=== PATIENT | female | born 1965 | race African-American/Black ===

== ENCOUNTER 2020-02-11 00:58 | Emergency (ER) | payer OTHER, SELFPAY ==
--- NOTE | ~2020-02-11 | XR_ITS ---
XR chest 1V portable 02/11/2020 01:50 Indication: Shortness of breath. Procedure: AP portable chest Comparison: No prior studies for comparison. Findings: Patchy bilateral airspace disease. No pleural effusion or pneumothorax. Heart size normal. No acute osseous abnormality. Impression: 1: Patchy bilateral airspace disease, consistent with pneumonia. Reviewed, dictated and finalized at location A. OYEE TRAINING SPECIALIST Impression: 1: Patchy bilateral airspace disease, consistent with pneumonia.
--- NOTE | ~2020-02-11 | CT_ITS ---
EXAMINATION: CTA chest PE protocol EXAM DATE: 02/11/2020 03:15 INDICATION: Dyspnea. TECHNIQUE: Spiral CTA of the chest (pulmonary arteries) was performed with 100 cc Omnipaque 350 intr avenous contrast injection. Images were acquired during the pulmonary arterial phase. Coronal maxi mum intensity projection 3D-reconstructions were created by the technologist on dedicated workstation . Axial, coronal and sagittal reformatted images were reviewed. The dose-length product (DLP) for t his examination was 961.63 mGy-cm. The exposure was tailored according to patient size (auto mA exp osure control), and iterative reconstruction (ASIR) was used as additional dose reduction technique. There is no prior study for comparison. FINDINGS: Pulmonary arteries are well opacified and without intraluminal filling defects. No thora cic aortic dissection. Bilateral patchy peripheral predominant groundglass opacities Appearance is typical of early stage C OVID 19. Less likely acute possibilities include influenza, pulmonary edema or hemorrhage. Some speech language specialist drew processes that can have this appearance include cryptogenic organizing pneumonia, desquamative in terstitial pneumonia, nonspecific interstitial pneumonia, drug toxicity, connective tissue disease. P lease clinically correlate and test as appropriate. There are no pleural or pericardial effusions. Tracheobronchial tree is patent. There is no media stinal, hilar or axillary lymphadenopathy. There is no pneumothorax. Heart normal in size. No e vidence of coronary arterial calcification. There is small to moderate sliding gastroesophageal hiata l hernia. There is thoracic spondylosis without osteoblastic or osteolytic lesions identified. IMPRESSION: 1. No evidence pulmonary embolism. 2. Patchy bilateral airspace disease suspicious for COVID-19 pneumonia. Clinical correlation. Reviewed, dictated and finalized at location B. FITTER IMPRESSION: 1. No evidence pulmonary embolism. 2. Patchy bilateral airspace disease suspicious for COVID-19 pneumonia. Clini balbina correlation.
--- NOTE | 2020-02-11 01:18 | ECG_ITS ---
Measurements Intervals [place] Rate: 82 P: 54 MD: 148 QRS: -15 QRSD: 91 T: -7 QT: 325 QTc: 381 Interpretive Statements SINUS RHYTHM VOLTAGE CRITERIA FOR LVH POOR R WAVE PROGRESSION, ANTERIOR LEADS BORDERLINE T WAVE ABNORMALITY- ANTEROLAT/INF LEADS BASELINE ARTIFACT- I, II, III, AVR, AVL, AVF, V1-V6 BORDERLINE ECG Electronically Signed On 02-11-2020 7:25:41 FUEL QUALITY TECH by Dhiraj Alvarez D.O.
[2020-02-11 01:19] VITALS: BP 115/85; PULSE 113; RESP 23; TEMP 36.7; O2SAT 97
--- NOTE | 2020-02-11 01:50 | ED.GENADULT ---
HPI - General Adult General Chief complaint: Upper Respiratory Infection Stated complaint: shortness of breath/cough Time Seen by Provider: 02/11/20 01:01 Source: RN notes reviewed History of Present Illness HPI narrative: Patient presents emergency department from home for upper respiratory infection. Patient states she began to feel sick 3 days ago. She states that she has had rhinorrhea as well as a cough that is been nonproductive she states that she does have some chest pain with coughing that resolves with rest states that she gone to the urgent care 2 days ago and has a Covid test that is pending from the urgent care she states that she was discharged with prednisone and Tessalon Perles with minimal relief states she had increased feeling shortness of breath brought her to the emergency department this evening she denies any fevers or chills or any other symptoms at this time Related Data Allergies Allergy/AdvReac Type Severity Reaction Status Date / Time TYLENOL WITH CODEINE AdvReac Intermediate VOMITING, Uncoded 02/11/20 01:00 DIZZINESS Review of Systems Review of Systems: Narrative: Gen.: Denies fevers or chills Eyes: Denies eye pain or visual change ENT: Reports nasal congestion Respiratory: See HPI CV: Denies chest pain or palpitations GI: Denies abdominal pain nausea, emesis or diarrhea Musculoskeletal: Denies back pain or muscle pain Neuro: Denies numbness, tingling, weakness or focal weakness Skin: Denies rash Except as documented, all other systems reviewed and negative [facility] Past Medical History Medical History (Updated 02/11/20 @ 04:01 by Dieudonne Carrillo DO) Patient denies significant medical history Social History Social History (Updated 02/11/20 @ 02:05 by Dieudonne Carrillo DO) Smoking status: Never smoker Exam Narrative: Exam Narrative: APPEARANCE: No acute distress, nontoxic, resting in bed EYES: EOMI HEENT: Normocephalic, atraumatic, OMM RESPIRATORY: No respiratory distress Clear to auscultation bilaterally with no rhonchi wheezing or rales. CARDIOVASCULAR: Regular rate and rhythm without murmurs rubs or gallops. ABDOMINAL: Soft, nontender, nondistended, no rebound or guarding MUSCULOSKELETAl: Moves all extremities. No clubbing, cyanosis or edema. NEURO: Awake and alert. Following commands, speech normal, no focal deficits SKIN:: Warm, dry. No rashes lesions or abrasions PSYCHIATRIC: Normal affect/mood, Course Course Emergency Course: Patient is remained on room air throughout stay in ED with oxygen saturations in the upper 90s CT scan does appear consistent with COVID-19 at this time I will plan to discharge the patient with follow-up as an outpatient I will repeat Covid swab Discussed with patient results of workup and diagnosis. Discussed need for follow-up with primary care, proper use of medication, and reasons to return to the emergency department. Patient understands and agrees to current treatment plan Vital Signs Vital signs: Vital Signs Temperature 98.1 F 02/11/20 01:19 Pulse Rate 113 H 02/11/20 01:19 Respiratory Rate 23 H 02/11/20 01:19 Blood Pressure 115/85 02/11/20 01:19 Pulse Oximetry 97 02/11/20 01:19 Temperature 98.1 F 02/11/20 01:19 Pulse Rate 84 02/11/20 03:57 Respiratory Rate 25 H 02/11/20 03:57 Blood Pressure 124/80 02/11/20 03:57 Pulse Oximetry 99 02/11/20 03:57 Medical Decision Making Vital Signs Vital Signs: Vital Signs Temperature 98.1 F 02/11/20 01:19 Pulse Rate 113 H 02/11/20 01:19 Respiratory Rate 23 H 02/11/20 01:19 Blood Pressure 115/85 02/11/20 01:19 Pulse Oximetry 97 02/11/20 01:19 Temperature 98.1 F 02/11/20 01:19 Pulse Rate 84 02/11/20 03:57 Respiratory Rate 25 H 02/11/20 03:57 Blood Pressure 124/80 02/11/20 03:57 Pulse Oximetry 99 02/11/20 03:57 Lab Data Result diagrams: 02/11/20 01:54 02/11/20 01:54 Labs: Lab Results 02/11/2001/20
[2020-02-11 02:11] VITALS: BP 134/82; PULSE 89; RESP 30; O2SAT 99
--- NOTE | 2020-02-11 02:11 | PC.NURSE ---
Called lab to add on Trop I
[2020-02-11 02:13] LABS: Hematocrit 35.6 % (37.0-47.0); Hemoglobin 11.6 g/dL (12.0-15.0); Immature Granulocyte Absolute 0.02 K/mm3 (0.00-0.031); Immature Granulocyte Percent A 0.3 % (0-0.5); Lymphocytes Absolute Auto 0.87 K/mm3 (0.9-3.2); Lymphocytes Percent Auto 11.3 % (18.3-44.2); Mean Corpuscular HGB Conc 32.6 g/dl (32-36); Mean Corpuscular Volume 79.8 fl (80-100); Mean Platelet Volume 12.1 fl (7.4-10.4); Monocytes Absolute Auto 0.4 K/mm3 (0.1-0.6); Monocytes Percent Auto 4.6 % (2.6-8.5); Neutrophils Absolute Auto 6.4 K/mm3 (1.3-6.7); Neutrophils Percent Auto 83.8 % (45.5-73.1); Platelet Count Result 138 k/mm3 (150-375); Red Blood Count 4.46 M/mm3 (4.2-5.4); Red Cell Distribution Width 15.7 % (11.5-14.5); White Blood Count 7.7 K/mm3 (4.5-10.0)
[2020-02-11 02:18] LABS: Anion Gap 8 mmol/L (8-16); Blood Urea Nitrogen 17 mg/dL (7-17); Carbon Dioxide 29 mmol/L (22-30); Chloride 105 mmol/L (98-107); Estimated Glomerular Filt Rate > 60; Glucose 130 mg/dL (65-105); Potassium 4.2 mmol/L (3.4-5.0); Sodium 142 mmol/L (137-145)
[2020-02-11 02:20] LABS: D Dimer 0.54 ug/mL (<0.48)
[2020-02-11 02:35] LABS: Troponin I < 0.012 ng/mL (0.000-0.034)
[2020-02-11] MEDS: ALBUTEROL SULFATE (*SP) AEROSOL 1 PUFF 2 PUFF INHALATION (02:57)
[2020-02-11 03:16] VITALS: PULSE 92
[2020-02-11 03:57] VITALS: BP 124/80; PULSE 84; RESP 25; O2SAT 99
[2020-02-11 04:16] VITALS: BP 124/80; PULSE 84; RESP 25; O2SAT 99
[2020-02-11 16:41] LABS: SARS-CoV-2 RNA PCR Positive
== END 2020-02-11 04:17 | disposition home or self-care (01) ==
PROVIDERS: Emergency Provider Emergency Medicine; PCP Obstetrics & Gynecology
DX: U07.1 COVID-19 (principal); R91.8 Other nonspecific abnormal finding of lung field; R94.31 Abnormal electrocardiogram [ECG] [EKG]
CPT/HCPCS: 36415; 71045; 71275; 80048; 84484; 85025; 85380; 87635; 93005; 94640; 99284; A9270; C9803; Q9967; U0003

== ENCOUNTER 2020-02-13 14:41 | Inpatient (IN) | payer OTHER, SELFPAY ==
[2020-02-13] VITALS (25 sets, daily range): BP systolic 103–128; BP diastolic 27–84; PULSE 77–97; RESP 15–31; TEMP 36.2–36.9; O2SAT 90–99; BMI 35.6
--- NOTE | ~2020-02-13 | XR_ITS ---
EXAMINATION: XR chest 1V portable DATE: 02/13/2020 15:30 INDICATION: COVID 19 presenting with chest pain and tightness and inspiration TECHNIQUE: frontal view of the chest was obtained. COMPARISON: Chest radiograph dated 02/11/2020 FINDINGS: There is been some interval progression in patchy airspace opacities in the bilateral mid and lower l meghan zones consistent with worsening pneumonia. No pleural effusion or pneumothorax. The cardiomediast inal silhouette is normal. Mild thoracic spondylosis. IMPRESSION: 1. Mild increase in bilateral patchy airspace opacities consistent with likely progression of COVID 1 9 pneumonia. Reviewed, dictated and finalized at location . CIPAL SERVICES MANAGER IMPRESSION: 1. Mild increase in bilateral patchy airspace opacities consistent with likely progression of COVID 19 pneumonia.
[2020-02-13] MEDS: SODIUM CHLORIDE 0.9% IV 1,000 ML 999 ML IV CONT (15:47)
[2020-02-13 15:50] LABS: Hematocrit 34.8 % (37.0-47.0); Hemoglobin 11.7 g/dL (12.0-15.0); Mean Corpuscular HGB Conc 33.6 g/dl (32-36); Mean Corpuscular Hemoglobin 26.5 pg (26-34); Mean Corpuscular Volume 78.9 fl (80-100); Platelet Count Result 162 k/mm3 (150-375); Red Blood Count 4.41 M/mm3 (4.2-5.4); Red Cell Distribution Width 15.9 % (11.5-14.5); White Blood Count 7.4 K/mm3 (4.5-10.0)
[2020-02-13 16:02] LABS: Alanine Aminotransferase 53 U/L (4-35); Albumin Level 4.3 g/dL (3.5-5.1); Alkaline Phosphatase 83 U/L (38-126); Anion Gap 12 mmol/L (8-16); Aspartate Amino Transferase 71 U/L (14-36); Bilirubin,Total 0.9 mg/dL (0.2-1.3); Blood Urea Nitrogen 16 mg/dL (7-17); Calcium 9.2 mg/dL (8.4-10.2); Carbon Dioxide 24 mmol/L (22-30); Chloride 104 mmol/L (98-107); Estimated CRCL calculation 61 ml/min; Estimated Glomerular Filt Rate > 60; Glucose 194 mg/dL (65-105); Potassium 4.5 mmol/L (3.4-5.0); Sodium 140 mmol/L (137-145)
[2020-02-13 16:04] LABS: D Dimer 0.73 ug/mL (<0.48)
--- NOTE | 2020-02-13 16:14 | ED.SOB ---
HPI - SOB/Dyspnea General Chief Complaint: Shortness of Breath/Dyspnea Stated Complaint: SOB Time Seen by Provider: 02/13/20 14:44 History of Present Illness HPI Narrative: Patient is a 54-year-old female who presents the ER with shortness of breath. She was diagnosed 2 days ago with COVID-19 illness. She reports she has been taking antibiotics and using her albuterol at home. Albuterol seems to help with shortness of breath. She has a home pulse oximeter and she reports that when she is at rest it has been reading 84% on room air. Patient does not want to be here but her encouraged her to come in to be evaluated. She reports that the shortness of breath does seem to be worsening from a couple days ago. She still has persistent cough that is nonproductive. No chest pain but does have some tightness. Related Data Allergies Allergy/AdvReac Type Severity Reaction Status Date / Time acetaminophen AdvReac Intermediate Dizziness/V Verified 02/13/20 15:13 [From Tylenol-Codeine] omiting codeine AdvReac Intermediate Dizziness/V Verified 02/13/20 15:13 [From Tylenol-Codeine] omiting Review of Systems Review of Systems: All systems reviewed & are unremarkable except as noted in HPI and below Constitutional: Constitutional: Denies chills, Reports fatigue and Reports fever(s) ENT: Denies nasal congestion and Denies sore throat Cardiovascular: Cardiovascular: Reports chest pain and Denies radiating jaw, neck or arm pain Respiratory: Respiratory: Reports cough, Reports dyspnea and Reports wheezing Gastrointestinal: Gastrointestinal: Denies abdominal pain, Denies diarrhea, Denies nausea and Denies vomiting PMFSH Past Medical History Medical History (Updated 02/13/20 @ 16:37 by Marquis Billingsley MD) Fibroids Patient denies significant medical history Surgical History Surgical History (Updated 02/13/20 @ 16:15 by Marquis Billingsley MD) Hx of breast biopsy Social History Social History (Updated 02/11/20 @ 02:05 by Dieudonne Carrillo DO) Smoking status: Never smoker Gender identity (if verbalized by the patient): Female Exam Narrative: Exam Narrative: GENERAL: Uncomfortable-appearing, well-nourished, and in mild distress. HEAD: Normocephalic, atraumatic. CHEST: Diminished throughout with scant extra wheezing. Tachypnea. HEART: Regular rate and rhythm. Normal peripheral pulses. EXTREMITIES: Normal range of motion. No edema. SKIN: Warm, dry, no rash. NEURO: Alert and oriented x3. PSYCH: Normal mood and affect. Course Course Emergency Course: Worsening imaging. Patient only able to ambulate 3 steps at a time before stopping to rest and catch her breath. Desats down to 90% on room air while performing this. Will admit for observation and scheduled steroids. Vital Signs Vital signs: Vital Signs Temperature 97.1 F L 02/13/20 14:46 Pulse Rate 97 02/13/20 14:46 Respiratory Rate 18 02/13/20 14:46 Blood Pressure 120/79 02/13/20 14:46 Pulse Oximetry 90 02/13/20 14:46 Temperature 97.1 F L 02/13/20 14:46 Pulse Rate 89 02/13/20 15:46 Respiratory Rate 20 02/13/20 15:46 Blood Pressure 109/80 02/13/20 15:46 Pulse Oximetry 98 02/13/20 15:48 MDM - SOB/Dyspnea Lab Data Result diagrams: 02/13/20 15:44 02/13/20 15:44 Labs: Lab Results 02/13/20 02/13/20 02/13/20 Range/Units 15:44 15:44 15:44 WBC 7.4 (4.5-10.0) K/mm3 RBC 4.41 (4.2-5.4) M/mm3 Hgb 11.7 L (12.0-15.0) g/dL Hct 34.8 L (37.0-47.0) % MCV 78.9 L (80-100) fl MCH 26.5 (26-34) pg MCHC 33.6 (32-36) g/dl RDW 15.9 H (11.5-14.5) % Plt Count 162 (150-375) k/mm3 MPV 12.0 H (7.4-10.4) fl Immature Gran % (Auto) Not Reportable Neut % (Auto) Not Reportable Lymph % (Auto) Not Reportable Desha % (Auto) Not Reportable Eos % (Auto) Not Reportable Baso % (Auto) Not Reportable Lymph # (Auto) Not Reportable
[2020-02-13 16:16] LABS: Band Neutrophils Percent 4 % (0-6); Lymphocytes Absolute Manual 0.22 K/mm3 (1.1-4.5); Monocytes Absolute Manual 0.07 K/mm3 (0.1-0.90); Monocytes Percent Manual 1 % (3-9); Neutrophils Percent Manual 92 % (46-73); Platelet Estimate Adequate (Adequate); Total Cells Counted 100
[2020-02-13 16:17] LABS: Anisocytosis 2+ (NORMAL)
[2020-02-13 16:39] LABS: CRP 21.2 mg/dL (<1.0)
[2020-02-13] MEDS: DEXAMETHASONE SOD PHOS INJ 4 MG/ML VIAL 6 MG IV PUSH (16:40)
--- NOTE | 2020-02-13 18:27 | ADMGEN ---
This patient, Radha Joshi, was admitted to [facility] Surg Room 330-01. Patient/family oriented to hospital policies and general routines including ID bracelet, bed and alarms, visiting hours, pain management, procedures, bathroom and other care routines, personal items, smoking policy, room service/diet, and visiting hours. Information on how to activate the Rapid Response Team has been discussed. Patient/Family are encouraged to report perceived risks to care and to ask questions if they do not understand what they are told or what they should do.
--- NOTE | 2020-02-13 21:30 | PM.IMHP ---
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 She was exposed to covid 19. She was diagnosed with COVID-19 2 days ago. She had a high fever and was short of breath. She went to an urgent care and was prescribed antibiotics and albuterol at home. She continues to have shortness of breath. She has a home pulse ox she reports that whenever she is at rest her oxygen level drops on 84%. Her encouraged her to come to the emergency room to be evaluated. She has a nonproductive cough. She also has some congestion and some tightness to left side of her chest. Patient had a CT a yesterday which showed no pulmonary embolism. She was started on Decadron. Patient was placed on oxygen at 2 L per nasal cannula but has been more short of breath with exertion and her oxygen level drops on 84% with exertion. She is now up to 5 L per nasal cannula. She has no previous medical history. She was admitted into observation status on date of service 02/13/2020 Review of Systems Review of Systems: All systems reviewed & are unremarkable except as noted in HPI and below Constitutional: Constitutional: Reports as per HPI and Reports no additional constitutional complaints Eyes: Eyes: Reports as per HPI and Reports no additional eye complaints ENT: Reports system reviewed and no additional complaints, except as documented and Reports Normal hearing present Cardiovascular: Cardiovascular: Reports no additional cardiovascular complaints Respiratory: Respiratory: Reports no additional respiratory complaints and Reports no additional respiratory complaints Gastrointestinal: Gastrointestinal: Reports as per HPI and Reports no additional gastrointestinal complaints Musculoskeletal: Musculoskeletal: Reports no additional musculoskeletal complaints Integumentary/Breasts: Skin/Breast: Reports system reviewed and no additional complaints, except as docu and Reports as per HPI Neurologic: Reports system reviewed and no additional complaints, except as documented, Reports as per HPI and Reports Normal hearing present Psychiatric: Psychiatric: Reports no additional psychiatric complaints and Reports as per HPI Endocrine: Endocrine: Reports no additional endocrine complaints Hematologic/Lymphatic: Hematologic/Lymphatic: Reports no additional hematologic/lymphatic complaints Allergic/Immunologic: Allergic/Immunologic: Reports no additional allergic/immunologic complaints [facility] Past Medical History Medical History (Updated 02/13/20 @ 16:37 by Marquis Billingsley MD) Fibroids Patient denies significant medical history Surgical History Surgical History (Updated 02/13/20 @ 21:40 by Hedy Hurt NP) H/O prior ablation treatment Uterine History of section, classical Hx of breast biopsy Family History Family History (Updated 02/13/20 @ 21:40 by Hedy Hurt NP) Unknown No family history of disorders Social History Social History (Updated 02/13/20 @ 21:42 by Hedy Hurt NP) Social History: 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 She has 4 children. 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 She is a full code. Lifelong nonsmoker. Does not use marijuana, illicit drugs. or alcohol. Smoking status: Never smoker Second hand tobacco smoke exposure: No Alcohol intake: never Substance use: never Living arrangements: with family Gender identity (if verbalized by the patient): Female Sexual Orientation (if Verbalized by the Patient): Straight or Heterosexual Spiritual care concerns: No Meds Home Medications and Allergies Home Medications Medication Instructions Recorded Confirmed Type albuterol sulfate 2 puff INHALATION QID PRN #6.7 gm 02/11/20 02/13/20 Rx azithromycin [Zithromax Z-Vance] See Rx Instructions .ROUTE
[2020-02-14] VITALS (12 sets, daily range): BP systolic 114–124; BP diastolic 72–80; PULSE 66–83; RESP 20–22; TEMP 36–36.3; O2SAT 90–98
[2020-02-14] MEDS: AZITHROMYCIN 250 MG TABLET 500 MG BY MOUTH (01:29)
[2020-02-14] MEDS: REMDESIVIR 200 MG/NS 250 ML 200 MG/250 ML BAG 250 MG IVPB (01:29)
[2020-02-14] MEDS: ALBUTEROL SULFATE (*SP) AEROSOL 1 PUFF 2 PUFF INHALATION ×4 (01:38→13:13)
[2020-02-14 07:10] LABS: Basophils Percent Auto 0.2 % (0.2-1.2); Hemoglobin 11.4 g/dL (12.0-15.0); Immature Granulocyte Absolute 0.11 K/mm3 (0.00-0.031); Immature Granulocyte Percent A 1.2 % (0-0.5); Lymphocytes Absolute Auto 0.71 K/mm3 (0.9-3.2); Lymphocytes Percent Auto 7.9 % (18.3-44.2); Mean Corpuscular HGB Conc 32.6 g/dl (32-36); Mean Corpuscular Hemoglobin 25.6 pg (26-34); Mean Corpuscular Volume 78.7 fl (80-100); Monocytes Absolute Auto 0.5 K/mm3 (0.1-0.6); Monocytes Percent Auto 5.7 % (2.6-8.5); Neutrophils Absolute Auto 7.6 K/mm3 (1.3-6.7); Platelet Count Result 170 k/mm3 (150-375); Red Blood Count 4.45 M/mm3 (4.2-5.4); Red Cell Distribution Width 15.9 % (11.5-14.5)
[2020-02-14 07:29] LABS: Alanine Aminotransferase 45 U/L (4-35); Albumin Level 3.9 g/dL (3.5-5.1); Alkaline Phosphatase 78 U/L (38-126); Anion Gap 11 mmol/L (8-16); Aspartate Amino Transferase 36 U/L (14-36); Bilirubin,Total 0.7 mg/dL (0.2-1.3); Blood Urea Nitrogen 17 mg/dL (7-17); CRP 19.6 mg/dL (<1.0); Calcium 9.5 mg/dL (8.4-10.2); Carbon Dioxide 26 mmol/L (22-30); Chloride 105 mmol/L (98-107); Estimated CRCL calculation 84 ml/min; Estimated Glomerular Filt Rate > 60; Glucose 171 mg/dL (65-105); Sodium 142 mmol/L (137-145)
[2020-02-14 08:04] LABS: Thyroid Stimulating Hormone Reflex 0.662 uIU/mL (0.465-4.68)
[2020-02-14] MEDS: DEXAMETHASONE SOD PHOS INJ 4 MG/ML VIAL 6 MG IV PUSH (08:40)
[2020-02-14] MEDS: ENOXAPARIN 40 MG/0.4 ML SYRINGE SUB-Q ×3 (08:41→20:08)
[2020-02-14] MEDS: ACETAMINOPHEN 325 MG TABLET 650 MG PO (08:41)
[2020-02-14] MEDS: BENZOCAINE/MENTHOL (*BKC) 18 EA LOZENGE 1 LOZENGE PO (11:45)
--- NOTE | 2020-02-14 15:39 | PM.IMPN ---
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 Will continue to monitor the pain and continue dexamethasone and remdesivir as symptoms improved will taper oxygen, once clinically stable will have a PT OT evaluate the patient. 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 Will continue to monitor the pain and continue dexamethasone and remdesivir as symptoms improved will taper oxygen, once clinically stable will have a PT OT evaluate the patient. Review of Systems Review of Systems: All systems reviewed & are unremarkable except as noted in HPI and below Exam Narrative: Exam Narrative: Moderately obese, persistent cough Patient is comfortable, NAD HEENT: eyes are clear and none icteric LUNGS: Bilateral fair air entry with rhonchi HEART: RR S1S2 ABD: BS+, Soft and nontender Lower extremities: no edema SKIN: nonjaundiced Neuro: grossly intact. Objective Data Vital Signs Vital Signs: Vital Signs - 24 hr 02/13/20 15:45 02/13/20 15:46 02/13/20 15:47 Temperature Pulse Rate 91 89 92 Respiratory Rate 20 20 15 Blood Pressure 109/80 Pulse Oximetry 94 94 94 02/13/20 15:48 02/13/20 16:00 02/13/20 16:01 Temperature Pulse Rate 87 85 Respiratory Rate 22 H 20 Blood Pressure 115/84 Pulse Oximetry 98 97 97 02/13/20 16:15 02/13/20 16:30 02/13/20 16:31 Temperature Pulse Rate 88 84 85 Respiratory Rate 21 H 22 H 21 H Blood Pressure 117/75 Pulse Oximetry 96 93 94 02/13/20 16:45 02/13/20 16:47 02/13/20 17:00 Temperature Pulse Rate 86 87 88 Respiratory Rate 22 H 20 20 Blood Pressure 128/27 L Pulse Oximetry 94 95 93 02/13/20 17:02 02/13/20 17:03 02/13/20 17:15 Temperature Pulse Rate 87 85 85 Respiratory Rate 16 31 H 28 H Blood Pressure 118/74 Pulse Oximetry 94 94 98 02/13/20 17:30 02/13/20 17:45 02/13/20 18:00 Temperature Pulse Rate 87 83 86 Respiratory Rate 30 H 19 28 H Blood Pressure 128/70 126/70 Pulse Oximetry 98 99 98 02/13/20 18:28 02/13/20 18:37 02/13/20 20:00 Temperature 98.4 F 97.3 F L Pulse Rate 77 78 Respiratory Rate 24 H 18 Blood Pressure 103/62 117/73 Pulse Oximetry 90 92 92 02/13/20 22:00 02/14/20 00:00 02/14/20 01:53 Temperature 97.1 F L Pulse Rate 74 76 Respiratory Rate 22 H Blood Pressure 119/80 Pulse Oximetry 92 90 91 02/14/20 01:54 02/14/20 04:00 02/14/20 08:00 Temperature 97.0 F L 97.0 F L Pulse Rate 76 75 75 Respiratory Rate 22 H 20 Blood Pressure 116/74 121/79 Pulse Oximetry 91 95 02/14/20 08:59 02/14/20 10:42 02/14/20 12:00 Temperature 96.8 F L Pulse Rate 77 79 Respiratory Rate 20 20 Blood Pressure 118/75 Pulse Oximetry 94 93 97
[2020-02-14] MEDS: ALBUTEROL SULFATE NEB 2.5 MG/0.5 ML INH 5 MG INHALATION (16:33)
[2020-02-14] MEDS: AZITHROMYCIN 250 MG TABLET BY MOUTH (20:08)
[2020-02-14] MEDS: SODIUM CHLORIDE NASAL GEL 14.1 GM 1 APPLIC NASAL (22:04)
[2020-02-14] MEDS: REMDESIVIR 100 MG/NS 250 ML 100 MG/250 ML BAG 250 MG IVPB (22:28)
--- NOTE | 2020-02-14 23:05 | PC.NURSE ---
Nurse location light turned on. Reinsertion of IV access explained and technique discussed. Attempted IV reinsertion with 22G catheter to left forearm x 1. After IV stick, patient becomes agitated and anxious. Stated, I want someone that knows what they're doing. Patient lifts cell phone from lap and places on speaker phone, dialing a phone number. Patient cries out to person on phone, I've told this Nurse to stop 5 times and she won't! She has stuck me multiple times, I want someone in here that knows what they're doing! Patient identifies person on phone as her daughter. IV site removed. Bed lowered to safe position and lights turned off. Nurse location light turned off. Anna Metal Cleaner, notified of incident. LUIS Cho notified.
[2020-02-15] VITALS (20 sets, daily range): BP systolic 98–119; BP diastolic 62–80; PULSE 60–92; RESP 18–20; TEMP 36.1–37.1; O2SAT 86–99
[2020-02-15] MEDS: ALBUTEROL SULFATE NEB 2.5 MG/0.5 ML INH 5 MG INHALATION ×4 (00:03→22:19)
[2020-02-15] MEDS: HYDROcodone/acetaminophen (*CRX) 5-325 MG TABLET 1 TAB PO ×3 (01:00→21:19)
[2020-02-15 06:38] LABS: Basophils Percent Auto 0.2 % (0.2-1.2); Hemoglobin 11.4 g/dL (12.0-15.0); Immature Granulocyte Absolute 0.17 K/mm3 (0.00-0.031); Immature Granulocyte Percent A 1.9 % (0-0.5); Lymphocytes Absolute Auto 1.01 K/mm3 (0.9-3.2); Lymphocytes Percent Auto 11.6 % (18.3-44.2); Mean Corpuscular HGB Conc 32.6 g/dl (32-36); Mean Corpuscular Hemoglobin 25.9 pg (26-34); Mean Corpuscular Volume 79.4 fl (80-100); Mean Platelet Volume 12.5 fl (7.4-10.4); Monocytes Absolute Auto 0.6 K/mm3 (0.1-0.6); Monocytes Percent Auto 6.9 % (2.6-8.5); Neutrophils Absolute Auto 6.9 K/mm3 (1.3-6.7); Neutrophils Percent Auto 79.4 % (45.5-73.1); Nucleated Red Blood Cells Perc 0.2 % (0.0-0.2); Platelet Count Result 212 k/mm3 (150-375); Red Blood Count 4.41 M/mm3 (4.2-5.4); Red Cell Distribution Width 15.9 % (11.5-14.5); White Blood Count 8.7 K/mm3 (4.5-10.0)
[2020-02-15 06:55] LABS: Alanine Aminotransferase 33 U/L (4-35); Albumin Level 3.8 g/dL (3.5-5.1); Alkaline Phosphatase 69 U/L (38-126); Anion Gap 9 mmol/L (8-16); Aspartate Amino Transferase 25 U/L (14-36); Bilirubin,Total 0.6 mg/dL (0.2-1.3); Blood Urea Nitrogen 21 mg/dL (7-17); Calcium 9.3 mg/dL (8.4-10.2); Carbon Dioxide 28 mmol/L (22-30); Chloride 105 mmol/L (98-107); Estimated CRCL calculation 84 ml/min; Estimated Glomerular Filt Rate > 60; Glucose 150 mg/dL (65-105); Potassium 4.4 mmol/L (3.4-5.0); Sodium 142 mmol/L (137-145)
[2020-02-15 07:08] LABS: CRP 12.6 mg/dL (<1.0)
[2020-02-15] MEDS: DEXAMETHASONE SOD PHOS INJ 4 MG/ML VIAL 6 MG IV PUSH (08:07)
[2020-02-15] MEDS: BENZOCAINE/MENTHOL (*BKC) 18 EA LOZENGE 1 LOZENGE PO (08:08)
[2020-02-15] MEDS: ENOXAPARIN 40 MG/0.4 ML SYRINGE SUB-Q ×2 (08:08→21:19)
[2020-02-15] MEDS: guaiFENesin/DEXTROMETHORPHAN 10 ML UDC PO (10:06)
--- NOTE | 2020-02-15 14:43 | PCRCNOTE ---
Window of time for administration has passed. See next scheduled administration.
--- NOTE | 2020-02-15 15:33 | PM.IMPN ---
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 Today patient is on dexamethasone 2/10 and remdesivir 2/5, there are no significant changes in her symptoms patient still requiring 12 L of oxygen patient denies fever and chills, patient does appear depressed and wants to know when she can go home, I have explained to her when she is fever free for 2 days and not requiring high flow oxygen and clinically stable, will discharge her. 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 Today patient is on dexamethasone 2/10 and remdesivir 2/5, there are no significant changes in her symptoms patient still requiring 12 L of oxygen patient denies fever and chills, patient does appear depressed and wants to know when she can go home, I have explained to her when she is fever free for 2 days and not requiring high flow oxygen and clinically stable, will discharge her. Review of Systems Review of Systems: All systems reviewed & are unremarkable except as noted in HPI and below Exam Narrative: Exam Narrative: Moderately obese, persistent cough Patient is comfortable, NAD HEENT: eyes are clear and none icteric LUNGS: Bilateral fair air entry with rhonchi HEART: RR S1S2 ABD: BS+, Soft and nontender Lower extremities: no edema SKIN: nonjaundiced Neuro: grossly intact. Objective Data Vital Signs Vital Signs: Vital Signs - 24 hr 02/14/20 16:00 02/14/20 16:34 02/14/20 16:44 Temperature 96.8 F L Pulse Rate 83 79 77 Respiratory Rate 20 20 20 Blood Pressure 114/72 Pulse Oximetry 96 02/14/20 20:00 02/15/20 00:00 02/15/20 00:03 Temperature 97.4 F L 97.4 F L Pulse Rate 66 68 92 Respiratory Rate 22 H 18 20 Blood Pressure 124/76 115/80 Pulse Oximetry 95 93 94 02/15/20 00:08 02/15/20 01:00 02/15/20 01:01 Temperature 97.4 F L Pulse Rate 68 Respiratory Rate 18 Blood Pressure 115/80 Pulse Oximetry 93 88 L 91 02/15/20 04:00 02/15/20 04:01 02/15/20 05:20 Temperature 97.0 F L Pulse Rate 60 Respiratory Rate 18 Blood Pressure 117/76 Pulse Oximetry 96 94 86 L 02/15/20 05:22 02/15/20 08:00 02/15/20 09:41 Temperature 98.0 F Pulse Rate 84 88 Respiratory Rate 20 20 Blood Pressure 119/79 Pulse Oximetry 91 93 93 02/15/20 09:57 02/15/20 12:00 Temperature 97.6 F Pulse Rate 84 74 Respiratory Rate 20 18 Blood Pressure 115/73 Pulse Oximetry 94 Intake/Output Intake/Output: Intake & Output 02/12/20 02/13/20 02/14/20 02/15/20 23:59 23:59 23:59 23:59 Intake Total 1000 1910 670 Output Total 1800 Balance 1000 1910 -1130 Meds/Results Medications: Active Medications Generic Name Dose Route Start Last Admin Tr
[2020-02-15] MEDS: AZITHROMYCIN 250 MG TABLET BY MOUTH (21:19)
[2020-02-15] MEDS: REMDESIVIR 100 MG/NS 250 ML 100 MG/250 ML BAG 250 MG IVPB (23:40)
[2020-02-16] VITALS (21 sets, daily range): BP systolic 92–130; BP diastolic 63–84; PULSE 60–80; RESP 18–22; TEMP 35.5–36.8; O2SAT 94–100
[2020-02-16] MEDS: ALBUTEROL SULFATE NEB 2.5 MG/0.5 ML INH 5 MG INHALATION ×5 (00:10→21:48)
[2020-02-16 06:30] LABS: Basophils Absolute Auto 0.1 K/mm3 (0.0-0.1); Basophils Percent Auto 0.6 % (0.2-1.2); Hematocrit 34.4 % (37.0-47.0); Hemoglobin 11.3 g/dL (12.0-15.0); Immature Granulocyte Absolute 0.36 K/mm3 (0.00-0.031); Immature Granulocyte Percent A 4.4 % (0-0.5); Lymphocytes Absolute Auto 1.74 K/mm3 (0.9-3.2); Lymphocytes Percent Auto 21.2 % (18.3-44.2); Mean Corpuscular HGB Conc 32.8 g/dl (32-36); Mean Corpuscular Hemoglobin 25.7 pg (26-34); Mean Corpuscular Volume 78.2 fl (80-100); Mean Platelet Volume 11.8 fl (7.4-10.4); Monocytes Absolute Auto 0.6 K/mm3 (0.1-0.6); Monocytes Percent Auto 7.3 % (2.6-8.5); Neutrophils Absolute Auto 5.5 K/mm3 (1.3-6.7); Neutrophils Percent Auto 66.5 % (45.5-73.1); Nucleated Red Blood Cells Perc 0.4 % (0.0-0.2); Platelet Count Result 263 k/mm3 (150-375); Red Cell Distribution Width 15.6 % (11.5-14.5); White Blood Count 8.2 K/mm3 (4.5-10.0)
[2020-02-16 06:44] LABS: Alanine Aminotransferase 26 U/L (4-35); Albumin Level 3.5 g/dL (3.5-5.1); Alkaline Phosphatase 63 U/L (38-126); Anion Gap 7 mmol/L (8-16); Aspartate Amino Transferase 21 U/L (14-36); Bilirubin,Total 0.5 mg/dL (0.2-1.3); Blood Urea Nitrogen 20 mg/dL (7-17); CRP 5.4 mg/dL (<1.0); Calcium 9.2 mg/dL (8.4-10.2); Carbon Dioxide 30 mmol/L (22-30); Chloride 104 mmol/L (98-107); Estimated CRCL calculation 76 ml/min; Estimated Glomerular Filt Rate > 60; Glucose 136 mg/dL (65-105); Potassium 4.2 mmol/L (3.4-5.0); Sodium 141 mmol/L (137-145)
[2020-02-16] MEDS: DEXAMETHASONE SOD PHOS INJ 4 MG/ML VIAL 6 MG IV PUSH (08:19)
[2020-02-16] MEDS: ENOXAPARIN 40 MG/0.4 ML SYRINGE SUB-Q ×2 (08:20→20:32)
--- NOTE | 2020-02-16 14:23 | PM.IMPN ---
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 Today patient is on dexamethasone 3/10 and remdesivir 3/5, there is some improvement today's patient requiring 10 L of oxygen, denies fever and chills, patient does appear depressed and wants to know when she can go home, I have explained to her when she is fever free for 2 days and not requiring high flow oxygen and clinically stable, will discharge her. 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 Today patient is on dexamethasone 3/10 and remdesivir 3/5, there is some improvement today's patient requiring 10 L of oxygen, denies fever and chills, patient does appear depressed and wants to know when she can go home, I have explained to her when she is fever free for 2 days and not requiring high flow oxygen and clinically stable, will discharge her. Review of Systems Review of Systems: All systems reviewed & are unremarkable except as noted in HPI and below Exam Narrative: Exam Narrative: Moderately obese, persistent cough Patient is comfortable, NAD HEENT: eyes are clear and none icteric LUNGS: Bilateral fair air entry with rhonchi HEART: RR S1S2 ABD: BS+, Soft and nontender Lower extremities: no edema SKIN: nonjaundiced Neuro: grossly intact. Objective Data Vital Signs Vital Signs: Vital Signs - 24 hr 02/15/20 15:32 02/15/20 15:44 02/15/20 16:00 Temperature 98.7 F Pulse Rate 64 77 66 Respiratory Rate 20 20 20 Blood Pressure 113/62 Pulse Oximetry 99 02/15/20 20:00 02/15/20 22:20 02/15/20 22:24 Temperature 97.7 F Pulse Rate 68 66 Respiratory Rate 20 20 Blood Pressure 98/76 L Pulse Oximetry 95 95 02/15/20 22:27 02/16/20 00:00 02/16/20 00:10 Temperature 97.7 F Pulse Rate 71 63 74 Respiratory Rate 20 20 20 Blood Pressure 107/73 Pulse Oximetry 100 02/16/20 00:20 02/16/20 04:00 02/16/20 04:21 Temperature 97.2 F L Pulse Rate 77 60 Respiratory Rate 20 20 Blood Pressure 99/70 L Pulse Oximetry 95 96 02/16/20 08:00 02/16/20 08:52 02/16/20 09:07 Temperature 97.3 F L Pulse Rate 77 64 77 Respiratory Rate 18 18 18 Blood Pressure 107/73 Pulse Oximetry 94 94 02/16/20 12:00 02/16/20 13:52 02/16/20 14:00 Temperature 98.2 F Pulse Rate 80 78 Respiratory Rate 20 18 Blood Pressure 113/65 Pulse Oximetry 96 96 02/16/20 14:01 Temperature Pulse Rate 76 Respiratory Rate 18 Blood Pressure Pulse Oximetry Intake/Output Intake/Output: Intake & Output 02/13/20 02/14/20 02/15/20 02/16/20 23:59 23:59 23:59 23:59 Intake Total 1000 2160 1660 1530 Output Total 2500 650 Balance 1000 2160 -840 8
[2020-02-16] MEDS: AZITHROMYCIN 250 MG TABLET BY MOUTH (20:32)
[2020-02-16] MEDS: ACETAMINOPHEN 325 MG TABLET 650 MG PO (20:32)
[2020-02-16] MEDS: REMDESIVIR 100 MG/NS 250 ML 100 MG/250 ML BAG 250 MG IVPB (23:16)
[2020-02-17] VITALS (12 sets, daily range): BP systolic 103–113; BP diastolic 56–70; PULSE 70–88; RESP 18–20; TEMP 35.7–36.4; O2SAT 89–97
[2020-02-17] MEDS: ENOXAPARIN 40 MG/0.4 ML SYRINGE SUB-Q ×2 (08:42→20:27)
[2020-02-17] MEDS: DEXAMETHASONE SOD PHOS INJ 4 MG/ML VIAL 6 MG IV PUSH (08:42)
[2020-02-17 09:16] LABS: Basophils Percent Auto 0.4 % (0.2-1.2); Eosinophils Percent Auto 0.3 % (0-4.4); Hematocrit 38.6 % (37.0-47.0); Hemoglobin 12.5 g/dL (12.0-15.0); Immature Granulocyte Absolute 0.49 K/mm3 (0.00-0.031); Immature Granulocyte Percent A 6.2 % (0-0.5); Lymphocytes Absolute Auto 1.78 K/mm3 (0.9-3.2); Lymphocytes Percent Auto 22.5 % (18.3-44.2); Mean Corpuscular HGB Conc 32.4 g/dl (32-36); Mean Corpuscular Hemoglobin 25.8 pg (26-34); Mean Corpuscular Volume 79.6 fl (80-100); Mean Platelet Volume 11.3 fl (7.4-10.4); Monocytes Absolute Auto 0.5 K/mm3 (0.1-0.6); Monocytes Percent Auto 6.1 % (2.6-8.5); Neutrophils Absolute Auto 5.1 K/mm3 (1.3-6.7); Neutrophils Percent Auto 64.5 % (45.5-73.1); Nucleated Red Blood Cells Perc 0.3 % (0.0-0.2); Platelet Count Result 310 k/mm3 (150-375); Red Blood Count 4.85 M/mm3 (4.2-5.4); Red Cell Distribution Width 15.8 % (11.5-14.5); White Blood Count 7.9 K/mm3 (4.5-10.0)
[2020-02-17 09:35] LABS: Potassium 3.8 mmol/L (3.4-5.0)
[2020-02-17 09:50] LABS: Alanine Aminotransferase 32 U/L (4-35); Albumin Level 3.7 g/dL (3.5-5.1); Alkaline Phosphatase 69 U/L (38-126); Anion Gap 7 mmol/L (8-16); Aspartate Amino Transferase 34 U/L (14-36); Bilirubin,Total 0.6 mg/dL (0.2-1.3); Blood Urea Nitrogen 19 mg/dL (7-17); CRP 4.6 mg/dL (<1.0); Calcium 9.2 mg/dL (8.4-10.2); Carbon Dioxide 31 mmol/L (22-30); Chloride 103 mmol/L (98-107); Estimated CRCL calculation 76 ml/min; Estimated Glomerular Filt Rate > 60; Glucose 135 mg/dL (65-105); Sodium 141 mmol/L (137-145)
--- NOTE | 2020-02-17 14:08 | PM.IMPN ---
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 Today patient is on dexamethasone 4/10 and remdesivir 4/5, there is not much improvement today's patient requiring 10 L of oxygen, denies fever and chills, patient does appear depressed and wants to know when she can go home, I have explained to her when she is fever free for 2 days and not requiring high flow oxygen and clinically stable, will discharge her. Will consult plumber supervisor for further recommendation patient is a and has a high risk of developing worsening pneumonia. 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 Today patient is on dexamethasone 4/10 and remdesivir 4/5, there is not much improvement today's patient requiring 10 L of oxygen, denies fever and chills, patient does appear depressed and wants to know when she can go home, I have explained to her when she is fever free for 2 days and not requiring high flow oxygen and clinically stable, will discharge her. Will consult plumber supervisor for further recommendation patient is a and has a high risk of developing worsening pneumonia. Review of Systems Review of Systems: All systems reviewed & are unremarkable except as noted in HPI and below Exam Narrative: Exam Narrative: Moderately obese, persistent cough Patient is comfortable, NAD HEENT: eyes are clear and none icteric LUNGS: Bilateral fair air entry with rhonchi HEART: RR S1S2 ABD: BS+, Soft and nontender Lower extremities: no edema SKIN: nonjaundiced Neuro: grossly intact. Objective Data Vital Signs Vital Signs: Vital Signs - 24 hr 02/16/20 14:47 02/16/20 16:00 02/16/20 17:02 Temperature 97.4 F L Pulse Rate 79 75 Respiratory Rate 18 18 Blood Pressure 123/84 Pulse Oximetry 95 97 02/16/20 17:14 02/16/20 20:00 02/16/20 21:40 Temperature 96.3 F L Pulse Rate 78 69 79 Respiratory Rate 18 18 18 Blood Pressure 130/82 Pulse Oximetry 94 02/16/20 21:50 02/16/20 21:51 02/16/20 23:55 Temperature 96 F L Pulse Rate 79 62 Respiratory Rate 18 20 Blood Pressure 92/63 L Pulse Oximetry 96 100 02/17/20 01:02 02/17/20 04:00 02/17/20 05:35 Temperature 96.3 F L Pulse Rate 70 77 Respiratory Rate 18 20 Blood Pressure 112/68 Pulse Oximetry 92 89 L 02/17/20 08:00 02/17/20 12:00 Temperature 97.6 F 97.1 F L Pulse Rate 77 84 Respiratory Rate 20 20 Blood Pressure 113/63 103/56 L Pulse Oximetry 93 97 Intake/Output Intake/Output: Intake & Output 02/14/20 02/15/20 02/16/20 02/17/20 23:59 23:59 23:59 23:59 Intake Total 2160 1660 2970 570 Output Total 2500 1625 350 Balance 2
[2020-02-17] MEDS: ALBUTEROL SULFATE NEB 2.5 MG/0.5 ML INH 5 MG INHALATION ×2 (15:16→19:44)
--- NOTE | 2020-02-17 15:21 | PCRCNOTE ---
Window of time for administration has passed. See next scheduled administration.
--- NOTE | 2020-02-17 19:12 | PM.CNPUL ---
Assessment and Plan Assessment and plan (1) Pneumonia due to 2019-nCoV: Code(s): U07.1 - COVID-19; J12.89 - Other viral pneumonia Status: Acute Assessment and Plan: Clinically improving - completed 10 days of dexamethasone or until discharge - once O2 sats are 90% or > on 6 liters can be discharge home on home oxygen - will need PFT and HRCT of the chest in 4 weeks and f/u in our clinic in 6 weeks. - PT/OT when able to mobilize with oxygen (2) Acute hypoxemic respiratory failure: Code(s): J96.01 - Acute respiratory failure with hypoxia Status: Acute History of Present Illness History of Present Illness Consult date: 02/17/20 Chief complaint: covid,pneumonia Review of Systems Review of Systems: All systems reviewed & are unremarkable except as noted in HPI and below PMFSH Past Medical History Medical History (Updated 02/17/20 @ 19:15 by aCndido Siddiqui MD) Fibroids Patient denies significant medical history Surgical History Surgical History (Updated 02/13/20 @ 21:40 by Hedy Hurt NP) H/O prior ablation treatment Uterine History of section, classical Hx of breast biopsy Family History Family History (Updated 02/13/20 @ 21:40 by Hedy Hurt NP) Unknown No family history of disorders Social History Social History (Updated 02/13/20 @ 21:42 by Hedy Hurt NP) Social History: 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 She has 4 children. She is and her is durable power bankruptcy attorney for healthcare. She is a full code. Lifelong nonsmoker. Does not use marijuana, illicit drugs. or alcohol. Smoking status: Never smoker Second hand tobacco smoke exposure: No Alcohol intake: never Substance use: never Living arrangements: with family Gender identity (if verbalized by the patient): Female Sexual Orientation (if Verbalized by the Patient): Straight or Heterosexual Spiritual care concerns: No Meds Home Medications and Allergies Home Medications Medication Instructions Recorded Confirmed Type albuterol sulfate 2 puff INHALATION QID PRN #6.7 gm 02/11/20 02/13/20 Rx azithromycin [Zithromax Z-Vance] See Rx Instructions .ROUTE 02/11/20 02/13/20 Rx .COMPLEX #6 tablet benzonatate [Tessalon Perles] 100 mg PO TID 02/13/20 02/13/20 History Allergies Allergy/AdvReac Type Severity Reaction Status Date / Time acetaminophen AdvReac Intermediate Dizziness/V Verified 02/13/20 18:40 [From Tylenol-Codeine] omiting codeine AdvReac Intermediate Dizziness/V Verified 02/13/20 18:40 [From Tylenol-Codeine] omiting Vital Signs Vital Signs - 24 hr 02/16/20 20:00 02/16/20 21:40 02/16/20 21:50 Temperature 35.7 C L Pulse Rate 69 79 79 Respiratory Rate 18 18 18 Blood Pressure 130/82 Pulse Oximetry 94 02/16/20 21:51 02/16/20 23:55 02/17/20 01:02 Temperature 35.5 C L Pulse Rate 62 70 Respiratory Rate 20 18 Blood Pressure 92/63 L Pulse Oximetry 96 100 02/17/20 04:00 02/17/20 05:35 02/17/20 08:00 Temperature 35.7 C L 36.4 C Pulse Rate 77 77 Respiratory Rate 20 20 Blood Pressure 112/68 113/63 Pulse Oximetry 92 89 L 93 02/17/20 12:00 02/17/20 15:21 02/17/20 15:22 Temperature 36.2 C L Pulse Rate 84 82 Respiratory Rate 20 18 Blood Pressure 103/56 L Pulse Oximetry 97 95 02/17/20 15:28 02/17/20 16:00 Temperature 36.0 C L Pulse Rate 80 88 Respiratory Rate 18 20 Blood Pressure 111/65 Pulse Oximetry 94 Exam Narrative: Exam Narrative: Moderately obese, persistent cough Patient is comfortable, NAD HEENT: eyes are clear and none icteric LUNGS: clear bilaterally with diminished lung sounds HEART: RR S1S2 ABD: BS+, Soft and nontender Lower extremities: no edema SKIN: nonjaundiced Neuro: grossly intact. Results Laboratory Findings CBC and BMP: 02/17/20 08:46 02/17/20 08:46 ABG, PT/INR, D-dimer: PT/INR, D-dimer D-Dimer 0.73 ug
[2020-02-17] MEDS: AZITHROMYCIN 250 MG TABLET BY MOUTH (20:27)
[2020-02-17] MEDS: BENZOCAINE/MENTHOL (*BKC) 18 EA LOZENGE 1 LOZENGE PO (20:27)
[2020-02-17] MEDS: SODIUM CHLORIDE NASAL GEL 14.1 GM 1 APPLIC NASAL (20:27)
[2020-02-17] MEDS: guaiFENesin/DEXTROMETHORPHAN 10 ML UDC PO (20:28)
[2020-02-17] MEDS: ACETAMINOPHEN 325 MG TABLET 650 MG PO (20:35)
[2020-02-17] MEDS: REMDESIVIR 100 MG/NS 250 ML 100 MG/250 ML BAG 250 MG IVPB (23:16)
[2020-02-18] VITALS (15 sets, daily range): BP systolic 102–116; BP diastolic 64–83; PULSE 80–120; RESP 18–22; TEMP 35.7–37.4; O2SAT 92–99
[2020-02-18] MEDS: ALBUTEROL SULFATE NEB 2.5 MG/0.5 ML INH 5 MG INHALATION ×5 (03:35→21:43)
[2020-02-18 07:44] LABS: Alanine Aminotransferase 38 U/L (4-35); Albumin Level 3.7 g/dL (3.5-5.1); Alkaline Phosphatase 72 U/L (38-126); Anion Gap 8 mmol/L (8-16); Aspartate Amino Transferase 30 U/L (14-36); Bilirubin,Total 0.5 mg/dL (0.2-1.3); Blood Urea Nitrogen 17 mg/dL (7-17); CRP 6.1 mg/dL (<1.0); Calcium 9.1 mg/dL (8.4-10.2); Carbon Dioxide 27 mmol/L (22-30); Chloride 104 mmol/L (98-107); Estimated CRCL calculation 84 ml/min; Estimated Glomerular Filt Rate > 60; Glucose 136 mg/dL (65-105); Potassium 4.2 mmol/L (3.4-5.0); Sodium 139 mmol/L (137-145)
[2020-02-18] MEDS: guaiFENesin/DEXTROMETHORPHAN 10 ML UDC PO (08:00)
[2020-02-18] MEDS: DEXAMETHASONE SOD PHOS INJ 4 MG/ML VIAL 6 MG IV PUSH (08:00)
[2020-02-18] MEDS: ENOXAPARIN 40 MG/0.4 ML SYRINGE SUB-Q ×2 (08:00→20:12)
[2020-02-18 09:34] LABS: Basophils Absolute Auto 0.1 K/mm3 (0.0-0.1); Basophils Percent Auto 0.7 % (0.2-1.2); Eosinophils Absolute Auto 0.1 K/mm3 (0-0.3); Eosinophils Percent Auto 0.8 % (0-4.4); Hematocrit 37.9 % (37.0-47.0); Hemoglobin 12.1 g/dL (12.0-15.0); Immature Granulocyte Absolute 0.66 K/mm3 (0.00-0.031); Immature Granulocyte Percent A 7.9 % (0-0.5); Lymphocytes Percent Auto 19.1 % (18.3-44.2); Mean Corpuscular HGB Conc 31.9 g/dl (32-36); Mean Corpuscular Hemoglobin 25.2 pg (26-34); Mean Platelet Volume 11.1 fl (7.4-10.4); Monocytes Absolute Auto 0.4 K/mm3 (0.1-0.6); Monocytes Percent Auto 5.3 % (2.6-8.5); Neutrophils Absolute Auto 5.5 K/mm3 (1.3-6.7); Neutrophils Percent Auto 66.2 % (45.5-73.1); Nucleated Red Blood Cells Perc 0.2 % (0.0-0.2); Platelet Count Result 320 k/mm3 (150-375); Red Cell Distribution Width 15.7 % (11.5-14.5); White Blood Count 8.4 K/mm3 (4.5-10.0)
[2020-02-18 09:47] LABS: Magnesium 2.6 mg/dL (1.6-2.3)
[2020-02-18 10:15] LABS: Ovalocytes 1+ (NORMAL); Platelet Estimate Adequate (Adequate)
[2020-02-18 10:16] LABS: Anisocytosis 1+ (NORMAL)
--- NOTE | 2020-02-18 10:58 | PC.NURSE ---
0730 ENTER ROOM, INTRODCUCED MYSELF. PT STATES THAT ROOM IS TO HOT SHE CAN'T BREATH. TURNED HEAT DOWN TO 67, GOT PT OCEAN SPRAY FOR NOSE, PT IS ON 10 HI FLOW . PT IN NOAPPARENT DISTRESS, SATS 925 fresh water gotten. EMPTIED BSC.
--- NOTE | 2020-02-18 11:00 | PC.NURSE ---
0845 ENTER ROOM ROOM COOL. PT STATES THAT SHE IS GOING TO GET WORSE PNUEMONIA BECAUSE OF THE COLD. ASKED PT WHAT SETTING SHE WOULD LIKE THE ROOM TO BE AT. SHE STATED 68. INCREASED IT FROM 67 TO 68 ASHED IF ANYTHING SHE NEEDED. STATES THAT SHE IS HAVING A NOSE BLEED AND THAT SHE IS BLEEDING ALL OVER. LOOKED AT PT'S KLEENEX ONE TISSUE HAD LARGE SCAB, ANTOHER HAD 2 DROPS OF BLOOD. NO BLEEDING NOTED FROM THE NOSTRILS AT PRESENT TIME.
--- NOTE | 2020-02-18 11:06 | PC.NURSE ---
0945 IN PT'S ROOM AND PT HAD 02 OFF. CHECKED SATS 85% O2 AT 10 HI FLOW REAPPLIED, SATS NOW AT 92 DR LORENZANA AWARE. HE WILL BE UP SOON AND SEE HER.
--- NOTE | 2020-02-18 11:11 | PC.NURSE ---
O2 STS LOW PER MONITOR CHECED ON PT SENSOR NOT ON FINGER. APPLIED PT UP TO 94% AT 11;12
--- NOTE | 2020-02-18 14:19 | PM.PNPUL ---
Progress Note: A&P Assessment and Plan (1) Acute hypoxemic respiratory failure: Code(s): J96.01 - Acute respiratory failure with hypoxia Status: Acute Assessment and Plan: Wean high flow for sats of 88% or greater. (2) Pneumonia due to 2019-nCoV: Code(s): U07.1 - COVID-19; J12.89 - Other viral pneumonia Status: Acute Assessment and Plan: She is clinically improving. Received 5 days of Remdesivir, completed on 02/17/20 Continue Dexamethasone 6 mg daily for a total of 10 days Subjective Date/time seen: 02/18/20 14:19 Interval history: Feeling better. Still on 10 liters high flow oxygen but sats are 98%. Review of Systems Review of Systems: All systems reviewed & are unremarkable except as noted in HPI and below Exam Narrative: Exam Narrative: Moderately obese, persistent cough Patient is comfortable, NAD HEENT: eyes are clear and none icteric LUNGS: clear bilaterally with diminished lung sounds HEART: RR S1S2 ABD: BS+, Soft and nontender Lower extremities: no edema SKIN: nonjaundiced Neuro: grossly intact. Objective Data Vital Signs Vital Signs: Vital Signs - 24 hr 02/17/20 15:21 02/17/20 15:22 02/17/20 15:28 Temperature Pulse Rate 82 80 Respiratory Rate 18 18 Blood Pressure Pulse Oximetry 95 02/17/20 16:00 02/17/20 19:44 02/17/20 19:58 Temperature 36.0 C L Pulse Rate 88 Respiratory Rate 20 20 Blood Pressure 111/65 Pulse Oximetry 94 94 02/17/20 20:00 02/18/20 00:00 02/18/20 03:44 Temperature 36.3 C L 35.7 C L Pulse Rate 77 86 Respiratory Rate 20 20 20 Blood Pressure 108/70 114/67 Pulse Oximetry 92 95 02/18/20 04:00 02/18/20 06:11 02/18/20 08:00 Temperature 36.8 C 36.0 C L Pulse Rate 83 115 H Respiratory Rate 20 22 H Blood Pressure 102/64 107/80 Pulse Oximetry 93 92 02/18/20 08:56 02/18/20 09:12 02/18/20 12:00 Temperature 37.2 C Pulse Rate 120 H 115 H 85 Respiratory Rate 22 H 22 H 20 Blood Pressure 115/67 Pulse Oximetry 98 Intake/Output Intake/Output: Intake & Output 02/15/20 02/16/20 02/17/20 02/18/20 23:59 23:59 23:59 23:59 Intake Total 1660 2970 2810 1110 Output Total 2500 1625 2350 700 Balance -840 1345 460 410 Meds/Results Medications: Active Medications Generic Name Dose Route Start Last Admin Trade Name Freq PRN Reason Stop Dose Admin Acetaminophen 650 mg 02/13/20 16:34 02/17/20 20:35 Acetaminophen 325 Mg Tablet PO 650 mg Q4H PRN Administration Mild Pain (1-3) or Fever Hydrocodone Bitart/Acetaminophen 1 tab 02/13/20 16:34 02/15/20 21:19 Hydrocodone/Acetaminophen (*Crx) 5-325 Mg Tablet PO 1 tab Q4H PRN Administration Pain Rated 4-6 Albuterol 2 puff 02/14/20 05:39 Albuterol Sulfate (*Sp) Aerosol 1 Puff INHALATION Q3H PRN shortness of breath or wheezing Albuterol 5 mg 02/14/20 16:00 02/18/20 08:59 Albuterol Sulfate Neb 2.5 Mg/0.5 Ml Inh INHALATION 5 mg Q4HRT LALIT Administration Benzocaine 1 lozenge 02/14/20 10:13 02/17/20 20:27 Benzocaine/Menthol (*Bkc) 18 Ea Lozenge PO 1 lozenge PRN PRN Administration Sore Throat Dexamethasone Sodium Phosphate 6 mg 02/14/20 09:00 02/18/20 08:00 Dexamethasone Sod Phos Inj 4 Mg/Ml Vial IV PUSH 02/23/20 09:01 6 mg DAILY LALIT Administration Enoxaparin Sodium 40 mg 02/14/20 09:00 02/18/20 08:00 Enoxaparin 40 Mg/0.4 Ml Syringe SUB-Q 40 mg Q12HR LALIT Administration Guaifenesin/Dextromethorphan 10 ml 02/13/20 21:56 02/18/20 08:00 Guaifenesin/Dextromethorphan 10 Ml Udc PO 10 ml Q4H PRN Administration Cough Morphine Sulfate 4 mg 02/13/20 16:34 Morphine Sulfate (*Crx) 4 Mg/Ml Inj IV PUSH Q2H PRN Pain Rated 7-10 Ondansetron HCl 4 mg 02/13/20 16:34 Ondansetron Inj 4 Mg/2 Ml Vial IV PUSH Q4H PRN Nausea Sodium Chloride 1 applic 02/14/20 20:30 02/17/20 20:27 Sodium Chloride Nasal Gel 14.1 Gm NASAL
--- NOTE | 2020-02-18 14:25 | PM.IMPN ---
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 Today patient is on dexamethasone 5/10 and remdesivir 5/5, completed the course for Remdesivir today will continue dexamethasone there is not much improvement today's patient requiring 10 L of oxygen, today patient is seen by pulmonology agrees with plan to continue, patient denies fever and chills, patient does appear depressed and wants to know when she can go home, I have explained to her when she is fever free for 2 days and not requiring high flow oxygen and clinically stable, will discharge her once is requiring less than 6 L of oxygen per nasal cannula (2) Patient denies significant medical history: Status: Acute Subjective Date/time seen: 02/18/20 14:25 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 Today patient is on dexamethasone 5/10 and remdesivir 5/5, completed the course for Remdesivir today will continue dexamethasone there is not much improvement today's patient requiring 10 L of oxygen, today patient is seen by pulmonology agrees with plan to continue, patient denies fever and chills, patient does appear depressed and wants to know when she can go home, I have explained to her when she is fever free for 2 days and not requiring high flow oxygen and clinically stable, will discharge her once is requiring less than 6 L of oxygen per nasal cannula Review of Systems Review of Systems: All systems reviewed & are unremarkable except as noted in HPI and below Exam Narrative: Exam Narrative: Moderately obese, persistent cough Patient is comfortable, NAD HEENT: eyes are clear and none icteric LUNGS: Normal respiratory effort ABD: Obese and distended Lower extremities: no edema SKIN: nonjaundiced Neuro: grossly intact good speech. Objective Data Vital Signs Vital Signs: Vital Signs - 24 hr 02/17/20 15:21 02/17/20 15:22 02/17/20 15:28 Temperature Pulse Rate 82 80 Respiratory Rate 18 18 Blood Pressure Pulse Oximetry 95 02/17/20 16:00 02/17/20 19:44 02/17/20 19:58 Temperature 96.8 F L Pulse Rate 88 Respiratory Rate 20 20 Blood Pressure 111/65 Pulse Oximetry 94 94 02/17/20 20:00 02/18/20 00:00 02/18/20 03:44 Temperature 97.3 F L 96.2 F L Pulse Rate 77 86 Respiratory Rate 20 20 20 Blood Pressure 108/70 114/67 Pulse Oximetry 92 95 02/18/20 04:00 02/18/20 06:11 02/18/20 08:00 Temperature 98.2 F 96.8 F L Pulse Rate 83 115 H Respiratory Rate 20 22 H Blood Pressure 102/64 107/80 Pulse Oximetry 93 92 02/18/20 08:56 02/18/20 09:12 02/18/20 12:00 Temperature 98.9 F Pulse Rate 120 H 115 H 85 Respiratory Rate 22 H 22 H 20 Blood Pressure 115/67 Pulse Oximetry 98 Intake/Output Intake/Output: Intake & Output
--- NOTE | 2020-02-18 16:01 | PCRCNOTE ---
Window of time for administration has passed. See next scheduled administration.
[2020-02-18] MEDS: ALBUTEROL SULFATE (*SP) AEROSOL 1 PUFF 2 PUFF INHALATION (20:37)
[2020-02-18] MEDS: ACETAMINOPHEN 325 MG TABLET 650 MG PO (20:52)
[2020-02-19] VITALS (19 sets, daily range): BP systolic 99–107; BP diastolic 53–69; PULSE 80–117; RESP 18–22; TEMP 36.3–37; O2SAT 85–99
[2020-02-19] MEDS: ALBUTEROL SULFATE NEB 2.5 MG/0.5 ML INH 5 MG INHALATION ×3 (04:35→15:50)
[2020-02-19 06:44] LABS: Basophils Absolute Auto 0.1 K/mm3 (0.0-0.1); Basophils Percent Auto 0.7 % (0.2-1.2); Eosinophils Absolute Auto 0.1 K/mm3 (0-0.3); Eosinophils Percent Auto 1.5 % (0-4.4); Hematocrit 39.5 % (37.0-47.0); Hemoglobin 12.9 g/dL (12.0-15.0); Immature Granulocyte Absolute 0.62 K/mm3 (0.00-0.031); Immature Granulocyte Percent A 7.3 % (0-0.5); Lymphocytes Absolute Auto 1.55 K/mm3 (0.9-3.2); Lymphocytes Percent Auto 18.3 % (18.3-44.2); Mean Corpuscular HGB Conc 32.7 g/dl (32-36); Mean Corpuscular Hemoglobin 26.2 pg (26-34); Mean Corpuscular Volume 80.1 fl (80-100); Monocytes Absolute Auto 0.4 K/mm3 (0.1-0.6); Monocytes Percent Auto 5.2 % (2.6-8.5); Neutrophils Absolute Auto 5.7 K/mm3 (1.3-6.7); Red Blood Count 4.93 M/mm3 (4.2-5.4); Red Cell Distribution Width 15.8 % (11.5-14.5); White Blood Count 8.5 K/mm3 (4.5-10.0)
[2020-02-19 07:15] LABS: Large Platelets Present; Platelet Clumps Present; Platelet Estimate Adequate (Adequate)
[2020-02-19 07:16] LABS: Anisocytosis 1+ (NORMAL); Stomatocytes 1+ (NORMAL)
[2020-02-19 07:48] LABS: Alanine Aminotransferase 31 U/L (4-35); Albumin Level 3.7 g/dL (3.5-5.1); Alkaline Phosphatase 83 U/L (38-126); Anion Gap 7 mmol/L (8-16); Aspartate Amino Transferase 21 U/L (14-36); Bilirubin,Total 0.4 mg/dL (0.2-1.3); Blood Urea Nitrogen 18 mg/dL (7-17); CRP 6.2 mg/dL (<1.0); Calcium 9.4 mg/dL (8.4-10.2); Carbon Dioxide 31 mmol/L (22-30); Chloride 103 mmol/L (98-107); Estimated CRCL calculation 76 ml/min; Estimated Glomerular Filt Rate > 60; Glucose 156 mg/dL (65-105); Sodium 141 mmol/L (137-145)
[2020-02-19] MEDS: ENOXAPARIN 40 MG/0.4 ML SYRINGE SUB-Q (09:03)
[2020-02-19] MEDS: DEXAMETHASONE SOD PHOS INJ 4 MG/ML VIAL 6 MG IV PUSH (09:03)
[2020-02-19] MEDS: guaiFENesin/DEXTROMETHORPHAN 10 ML UDC PO (09:04)
--- NOTE | 2020-02-19 10:10 | PCRCNOTE ---
Window of time for administration has passed. See next scheduled administration.
--- NOTE | 2020-02-19 11:40 | PM.PNPUL ---
Progress Note: A&P Assessment and Plan (1) Pneumonia due to 2019-nCoV: Code(s): U07.1 - COVID-19; J12.89 - Other viral pneumonia Status: Acute Assessment and Plan: Will order outpatient PFT and HRCT of the chest in 4 weeks f/u in pulmonary office in 6 weeks. (2) Acute hypoxemic respiratory failure: Code(s): J96.01 - Acute respiratory failure with hypoxia Status: Acute Assessment and Plan: I've asked RT to switch her to regular nasal cannula at 6 liters and if Oxygen remains at 88% or greater at rest she can be discharged home from my point of view. Subjective Date/time seen: 02/19/20 11:40 Interval history: Radha is doing very well. She was turned down to 4 liters high flow but according to the nurse her sats dropped to 70's. She was asymptomatic. She is now on 6 liters high flow but feels well and is completely asymptomatic, good muscle strength and no weakness. She is asking to go home Review of Systems Review of Systems: All systems reviewed & are unremarkable except as noted in HPI and below Exam Narrative: Exam Narrative: Moderately obese, persistent cough Patient is comfortable, NAD HEENT: eyes are clear and none icteric LUNGS: clear bilaterally with diminished lung sounds HEART: RR S1S2 ABD: BS+, Soft and nontender Lower extremities: no edema SKIN: nonjaundiced Neuro: grossly intact. Objective Data Vital Signs Vital Signs: Vital Signs - 24 hr 02/18/20 12:00 02/18/20 16:00 02/18/20 16:23 Temperature 37.2 C 37.4 C Pulse Rate 85 80 100 Respiratory Rate 20 20 22 H Blood Pressure 115/67 107/67 Pulse Oximetry 98 93 02/18/20 16:35 02/18/20 16:37 02/18/20 20:00 Temperature 37.1 C Pulse Rate 98 98 Respiratory Rate 22 H 18 Blood Pressure 116/83 Pulse Oximetry 93 95 02/18/20 21:45 02/19/20 00:00 02/19/20 02:44 Temperature 36.7 C Pulse Rate 100 83 Respiratory Rate 22 H 20 Blood Pressure 100/69 Pulse Oximetry 99 93 02/19/20 04:00 02/19/20 04:35 02/19/20 04:36 Temperature 36.9 C Pulse Rate 80 94 Respiratory Rate 20 20 Blood Pressure 101/53 L Pulse Oximetry 92 92 02/19/20 08:00 Temperature 37.0 C Pulse Rate 87 Respiratory Rate 18 Blood Pressure 99/67 L Pulse Oximetry 96 Intake/Output Intake/Output: Intake & Output 02/16/20 02/17/20 02/18/20 02/19/20 23:59 23:59 23:59 23:59 Intake Total 2970 2810 2100 450 Output Total 1625 2350 1800 700 Balance 1345 460 300 -250 Meds/Results Medications: Active Medications Generic Name Dose Route Start Last Admin Trade Name Freq PRN Reason Stop Dose Admin Acetaminophen 650 mg 02/13/20 16:34 02/18/20 20:52 Acetaminophen 325 Mg Tablet PO 650 mg Q4H PRN Administration Mild Pain (1-3) or Fever Hydrocodone Bitart/Acetaminophen 1 tab 02/13/20 16:34 02/15/20 21:19 Hydrocodone/Acetaminophen (*Crx) 5-325 Mg Tablet PO 1 tab Q4H PRN Administration Pain Rated 4-6 Albuterol 2 puff 02/14/20 05:39 02/18/20 20:37 Albuterol Sulfate (*Sp) Aerosol 1 Puff INHALATION 2 puff Q3H PRN Administration shortness of breath or wheezing Albuterol 5 mg 02/14/20 16:00 02/19/20 10:10 Albuterol Sulfate Neb 2.5 Mg/0.5 Ml Inh INHALATION Not Given Q4HRT LALIT Benzocaine 1 lozenge 02/14/20 10:13 02/17/20 20:27 Benzocaine/Menthol (*Bkc) 18 Ea Lozenge PO 1 lozenge PRN PRN Administration Sore Throat Dexamethasone Sodium Phosphate 6 mg 02/14/20 09:00 02/19/20 09:03 Dexamethasone Sod Phos Inj 4 Mg/Ml Vial IV PUSH 02/23/20 09:01 6 mg DAILY LALIT Administration Enoxaparin Sodium 40 mg 02/14/20 09:00 02/19/20 09:03 Enoxaparin 40 Mg/0.4 Ml Syringe SUB-Q 40 mg Q12HR LALIT Administration Guaifenesin/Dextromethorphan 10 ml 02/13/20 21:56 02/19/20 09:04 Guaifenesin/Dextromethorphan 10 Ml Udc PO 10 ml Q4H PRN Administration Cough Morphine Sulfate 4 mg 02/13/20 16:34 Morphine Sulfate (*Crx) 4 Mg/Ml Inj
--- NOTE | 2020-02-19 15:24 | PM.DS ---
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 Today patient is on dexamethasone 5/10 and remdesivir 5/5, completed the course for Remdesivir today will continue dexamethasone there is not much improvement today's patient requiring 10 L of oxygen, today patient is seen by pulmonology agrees with plan to continue, patient denies fever and chills, patient does appear depressed and wants to know when she can go home, I have explained to her when she is fever free for 2 days and not requiring high flow oxygen and clinically stable, will discharge her once is requiring less than 6 L of oxygen per nasal cannula (2) Patient denies significant medical history: Status: Acute DS: Summary Hospital Course Reason for hospitalization: Chief complaint: covid,pneumonia Narrative: Radha Joshi 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 She was exposed to covid 19. She was diagnosed with COVID-19 2 days ago. She had a high fever and was short of breath. She went to an urgent care and was prescribed antibiotics and albuterol at home. She continues to have shortness of breath. She has a home pulse ox she reports that whenever she is at rest her oxygen level drops on 84%. Her encouraged her to come to the emergency room to be evaluated. She has a nonproductive cough. She also has some congestion and some tightness to left side of her chest. Patient had a CT a yesterday which showed no pulmonary embolism. She was started on Decadron. Patient was placed on oxygen at 2 L per nasal cannula but has been more short of breath with exertion and her oxygen level drops on 84% with exertion. She is now up to 5 L per nasal cannula. She has no previous medical history. 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 Today patient is on dexamethasone / and remdesivir 5/, completed the course for Remdesivir today will continue dexamethasone there is not much improvement today's patient requiring 10 L of oxygen, today patient is seen by pulmonology agrees with plan to continue, patient denies fever and chills, patient does appear depressed and wants to know when she can go home, I have explained to her when she is fever free for 2 days and not requiring high flow oxygen and clinically stable, will discharge her once is requiring less than 6 L of oxygen per nasal cannula today patient is clinically stable and requiring less than 6 L of oxygen per NC. Status at Discharge Functional status at discharge: independent ambulation Overall status at discharge: patient is back to base
--- NOTE | 2020-02-19 15:26 | HOMEO2EVAL ---
Home Oxygen Evaluation RC: Home Oxygen (O2) Evaluation Start: 02/19/20 11:05 Freq: ONCE Status: Active Protocol: RPE Activity Type Activity Date Activity User E-Sign Co-Sign Detail Recorded Client Recorded Date Recorded By Document 02/19/20 14:00 CHAGO [id number] 02/19/20 15:25 CHAGO Document 02/19/20 14:03 CHAGO [email or web address] 02/19/20 15:25 CHAGO Document 02/19/20 14:05 CHAGO [email or web address] 02/19/20 15:25 CHAGO Document 02/19/20 14:07 CHAGO [email or web address] 02/19/20 15:25 CHAGO Document 02/19/20 14:10 CHAGO [email or web address] 02/19/20 15:25 CHAGO Document 02/19/20 14:12 CHAGO [email or web address] 02/19/20 15:25 CHAGO Document 02/19/20 14:20 CHAGO [email or web address] 02/19/20 15:25 CHAGO Document 02/19/20 14:25 CHAGO [email or web address] 02/19/20 15:25 CHAGO 02/19/20 02/19/20 02/19/20 14:00 14:03 14:05 Home O2 Evaluation Test Phase Resting Resting Resting Oxygen Delivery Room Air High Flow Nasal High Flow Nasal Cannula Cannula Oxygen Flow Rate (L/min) 2 3 Pulse Oximetry (90-100 %) 85 L 86 L 86 L Home Oxygen Evaluation Comments Treatment Charges O2 Evaluation 02/19/20 02/19/20 02/19/20 14:07 14:10 14:12 Home O2 Evaluation Test Phase Resting Resting Resting Oxygen Delivery High Flow Nasal High Flow Nasal High Flow Nasal Cannula Cannula Cannula Oxygen Flow Rate (L/min) 4 5 6 Pulse Oximetry (90-100 %) 86 L 87 L 90 Home Oxygen Evaluation Comments Treatment Charges 02/19/20 02/19/20 14:20 14:25 Home O2 Evaluation Test Phase Exercise Resting Oxygen Delivery High Flow Nasal High Flow Nasal Cannula Cannula Oxygen Flow Rate (L/min) 6 6 Pulse Oximetry (90-100 %) 89 L 90 Home Oxygen Evaluation Comments PT REQUIRES 6L HIGH FLOW CANNULA RESTING AND WITH EXERTION Treatment Charges
== END 2020-02-19 17:40 | disposition home or self-care (01) | DRG 177 ==
LOC: ANHED 16:37 → ANH3MEDSUR 17:50
PROVIDERS: Nurse Practitioner; Admitting Provider Internal Medicine; Emergency Provider Emergency Medicine; Visit Provider Family Medicine
DX: U07.1 COVID-19 (principal); J12.89 Other viral pneumonia; J96.01 Acute respiratory failure with hypoxia; E66.9 Obesity, unspecified; Z68.35 Body mass index [BMI] 35.0-35.9, adult
CPT/HCPCS: 36415; 71045; 80053; 82728; 83735; 84443; 85025; 85380; 86140; 94618; 94640; 96361; 96365; 96372; 96375; 97161; 97165; 99285; A9270; G0378; J1100; J1650; J7030

== ENCOUNTER 2020-03-31 16:00 | Outpatient (CLI) | payer OTHER, SELFPAY ==
--- NOTE | ~2020-03-31 | CT_ITS ---
EXAMINATION:CT chest high resolution wo la DATE: 03/31/2020 16:17 INDICATION: COVID-19 pneumonia with positive test on 02/11/20. TECHNIQUE: Computed tomography (CT) of the chest was performed without intravenous contrast. Automate d exposure control and iterative reconstruction technique were employed. The dose-length product (DLP ) was 651.37 mGy-cm. COMPARISON: Chest CT 02/11/2020 FINDINGS: There are patchy groundglass opacities with septal thickening and some areas of volume loss scattered in all lobes. No bronchiectasis or honeycombing. There is mild atelectasis in left lower l obe. No pleural effusion. The heart size is normal. No pericardial effusion. There is a moderate-size d sliding hiatal hernia. There is mild thoracic spondylosis. IMPRESSION: 1. Diffuse lung disease with improvement from 02/11/2020, consistent with COVID-19 pneumonia and/or p [id number] chronic lung disease. 2. Moderate-sized sliding hiatal hernia. Reviewed, dictated and finalized at location A. 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 Diffuse lung disease with improvement from 02/11/2020, consistent with COVID -19 pneumonia and/or [id number] chronic lung disease. 2. Moderate-sized sliding hiatal hernia.
== END 2020-03-31 16:01 ==
PROVIDERS: Visit Provider Internal Medicine Critical Care Medicine
DX: J12.82 Pneumonia due to coronavirus disease 2019 (principal); K44.9 Diaphragmatic hernia without obstruction or gangrene
CPT/HCPCS: 71250

== ENCOUNTER 2021-01-26 16:32 | Emergency (ER) | payer BC, SELFPAY ==
--- NOTE | ~2021-01-26 | CT_ITS ---
EXAMINATION: CT abdomen pelvis w con EXAM DATE: 01/26/2021 20:04 INDICATION: Left flank pain, LLQ abd pain. TECHNIQUE: Spiral CT of the abdomen and pelvis was performed following intravenous injection of 100 m L Omnipaque 350. Axial, coronal and sagittal images of the abdomen and pelvis were reviewed. The do se-length product (DLP) for this examination was 1907.56 mGy-cm. The exposure was tailored according to patient size (auto mA exposure control), and iterative reconstruction (ASIR) was used as addition al dose reduction technique. There is no prior study for comparison. FINDINGS: The liver, spleen, adrenal glands and pancreas are unremarkable. Gallbladder is unremarkab le. No biliary obstruction. Portal and splenic veins are patent. Kidneys enhance symmetrically. T here is no hydronephrosis. The uterus is anteverted and morphologically normal. The bladder is un remarkable. There is no retroperitoneal or pelvic lymphadenopathy. The tip of the medially located appendix measures 10 mm in diameter, twice the diameter of other port ions of the appendix (indicated on axial image 121). There is no appendicolith, and it does not appea r obstructed, fluid-filled, or have adjacent inflammation. There is moderate-sized gastroesophageal hiatal hernia. There is expected amount of colonic stool. No free intraperitoneal gas. The heart is normal in size. There are no pericardial or pleural effusions. The lung bases are unremarkable. There are no osteoblastic or osteolytic lesions identified. IMPRESSION: 1. Enlarged but otherwise unremarkable appendix tip. Could be congenital appearance or transient, bu t carcinoid of appendix not excludable. Consider 3-6-month follow-up CT abdomen pelvis. 2. Moderate-sized gastroesophageal hiatal hernia. 3. No acute abdomen or pelvis findings. Reviewed, dictated and finalized at location A. 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 Enlarged but otherwise unremarkable appendix tip. Could be congenital appea mohit or transient, but carcinoid of appendix not excludable. Consider 3-6-margie h follow-up CT abdomen pelvis. 2. Moderate-sized gastroesophageal hiatal hernia. 3. No acute abdomen or pelvis findings.
[2021-01-26 17:05] VITALS: BP 138/83; PULSE 85; RESP 16; TEMP 36.2; O2SAT 100
[2021-01-26 17:31] LABS: Basophils Absolute Auto 0.1 K/mm3 (0.0-0.1); Basophils Percent Auto 0.9 % (0.2-1.2); Eosinophils Absolute Auto 0.1 K/mm3 (0-0.3); Eosinophils Percent Auto 1.5 % (0-4.4); Hemoglobin 12.2 g/dL (12.0-15.0); Immature Granulocyte Absolute 0.02 K/mm3 (0.00-0.031); Immature Granulocyte Percent A 0.4 % (0-0.5); Lymphocytes Absolute Auto 1.79 K/mm3 (0.9-3.2); Lymphocytes Percent Auto 33.6 % (18.3-44.2); Mean Corpuscular HGB Conc 32.1 g/dl (32-36); Mean Corpuscular Hemoglobin 26.2 pg (26-34); Mean Corpuscular Volume 81.7 fl (80-100); Mean Platelet Volume 10.1 fl (7.4-10.4); Monocytes Absolute Auto 0.4 K/mm3 (0.1-0.6); Monocytes Percent Auto 8.3 % (2.6-8.5); Neutrophils Percent Auto 55.3 % (45.5-73.1); Platelet Count Result 223 k/mm3 (150-375); Red Blood Count 4.65 M/mm3 (4.2-5.4); Red Cell Distribution Width 17.3 % (11.5-14.5); White Blood Count 5.3 K/mm3 (4.5-10.0)
[2021-01-26 17:51] LABS: Alanine Aminotransferase 20 U/L (4-35); Albumin Level 4.7 g/dL (3.5-5.1); Alkaline Phosphatase 122 U/L (38-126); Anion Gap 8 mmol/L (8-16); Aspartate Amino Transferase 24 U/L (14-36); Bilirubin,Total 0.3 mg/dL (0.2-1.3); Blood Urea Nitrogen 11 mg/dL (7-17); Calcium 9.9 mg/dL (8.4-10.2); Carbon Dioxide 28 mmol/L (22-30); Chloride 106 mmol/L (98-107); Estimated CRCL calculation 60 ml/min; Estimated Glomerular Filt Rate > 60; Glucose 99 mg/dL (65-110); Lipase 301 U/L (23-300); Potassium 4.4 mmol/L (3.4-5.0); Sodium 142 mmol/L (137-145)
[2021-01-26 18:38] VITALS: BP 137/91; PULSE 81; RESP 16; O2SAT 99
[2021-01-26 18:59] LABS: Add Urine Microscopic? YES; Appearance Urine Cloudy (Clear); Bilirubin Urine Negative (Negative); Blood Urine Negative (Negative); Color Urine Yellow (Yellow); Glucose Urine UA Negative (Negative); Ketones Urine Negative (Negative); Leukocyte Esterase Ur Negative LEU/UL (Negative); Mucus Urine Rare /lpf; Nitrate Urine Negative (Negative); Protein Urine Negative (Negative); RBC Urine 0-2 /hpf (0-2); Specific Grav Ur 1.015 (1.001-1.035); Squamous Epithelial Cell Urine Moderate /hpf (Few); Urobilinogen Urine Negative mg/dL (<2.0); WBC Urine 0-3 /hpf
--- NOTE | 2021-01-26 18:59 | ED.ABDPAIN ---
HPI - Abdominal Pain General Chief Complaint: Abdominal Pain Stated Complaint: L BACK PAIN RADIATING DOWN LEG Time Seen by Provider: 01/26/21 18:59 Source: patient Mode of arrival: ambulatory Limitations: no limitations History of Present Illness HPI narrative: Patient is a 55-year-old female presenting for evaluation of left lower quadrant abdominal pain, left back pain. Patient states pain began earlier this afternoon, described as a sharp, stabbing pain in the left flank with radiation to the left lower quadrant. Patient denies associated fever, chills, nausea or vomiting. Pain is not exacerbated with movement. No recent heavy bending or lifting. Patient does endorse that the pain radiates down her left buttock and into her left leg. No associated leg weakness or numbness. Patient denies associated dysuria or hematuria. No history of chronic lumbar back pain. Patient started to google her symptoms, became quite anxious, thus presenting to the emergency department for assessment. Patient denies any diarrhea or constipation. No history of nephrolithiasis. Related Data Allergies Allergy/AdvReac Type Severity Reaction Status Date / Time codeine AdvReac Intermediate Dizziness/V Verified 04/17/20 13:55 [From Tylenol-Codeine] omiting Review of Systems Review of Systems: CONSTITUTIONAL: Denies fever, chills, or sweats. EYES: Denies visual changes, redness, or discharge. ENT: Denies rhinorrhea, congestion, sore throat, or otalgia. CARDIOVASCULAR: Denies chest pain, palpitations, or edema. RESPIRATORY: Denies cough or dyspnea. GASTROINTESTINAL: Reports left lower quadrant abdominal pain, reports left flank pain, denies nausea, vomiting or diarrhea GENITOURINARY: Denies dysuria or hematuria. SKIN: Denies rash or itching. MUSCULOSKELETAL: Denies back pain, joint pain, or myalgia. NEUROLOGIC: Denies headache, numbness, or weakness. 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 She is a full code. Lifelong nonsmoker. Does not use marijuana, illicit drugs. or alcohol. Smoking status: Never smoker Second hand tobacco smoke exposure: No Alcohol intake: never Substance use: never Gender identity (if verbalized by the patient): Female Sexual Orientation (if Verbalized by the Patient): Straight or Heterosexual Spiritual care concerns: No Exam Narrative: GENERAL: Awake, alert, conversant, tearful HEAD: Normocephalic, atraumatic. EYES: PERRLA and EOMI. ENT: Nares clear, no rhinorrhea or epistaxis. Mucous membranes moist. NECK: Supple. CHEST: No respiratory distress, breathing even and non labored HEART: Regular rate, sinus rhythm ABDOMEN:Non distended, mild left lower quadrant tenderness without guarding, no rebound or rigidity, left flank tenderness, no midline spinal tenderness EXTREMITIES: Normal range of motion. No edema. SKIN: Warm, dry, no rash. NEURO:No focal deficits. Alert and oriented x3 Course Vital Signs Vital signs: Vital Signs Temperature 36.2 C L 01/26/21 17:05 Pulse Rate 85 01/26/21 17:05 Respiratory Rate 16 01/26/21 17:05 Blood Pressure 138/83 01/26/21 17:05 Pulse Oximetry 100 01/26/21 17:05
[2021-01-26] MEDS: SODIUM CHLORIDE 0.9% IV 1,000 ML 999 ML IV CONT (19:22)
[2021-01-26] MEDS: ONDANSETRON INJ 4 MG/2 ML VIAL IV PUSH (19:23)
[2021-01-26] MEDS: MORPHINE SULFATE (*CRX) 2 MG/ML INJ IV PUSH (19:23)
--- NOTE | 2021-01-26 19:28 | PC.NURSE ---
Morphine not administered per patient refusal. Morphine returned to pyxis.
--- NOTE | 2021-01-26 19:33 | PC.NURSE ---
Tylenol allergy removed. Pt reports that she is only allergic to codeine. Pt reports taking tylenol for the pain today.
[2021-01-26 21:08] VITALS: BP 116/76; PULSE 84; RESP 16; O2SAT 99
== END 2021-01-26 21:10 | disposition home or self-care (01) ==
PROVIDERS: Emergency Provider Emergency Medicine
DX: R10.32 Left lower quadrant pain (principal); Z86.16 Personal history of COVID-19; Z87.01 Personal history of pneumonia (recurrent); K44.9 Diaphragmatic hernia without obstruction or gangrene; R93.5 Abnormal findings on diagnostic imaging of other abdominal regions, including retroperitoneum
CPT/HCPCS: 36415; 74177; 80053; 81001; 81025; 83690; 85025; 96365; 96375; 99284; J0131; J2270; J2405; J7030; Q9967

== ENCOUNTER 2021-10-16 11:48 | Emergency (ER) | payer BC, SELFPAY ==
--- NOTE | ~2021-10-16 | CT_ITS ---
EXAMINATION: CT abdomen pelvis w con INDICATION: Right lower quadrant pain TECHNIQUE: Computed tomographic images of the abdomen and pelvis were obtained after the administrati on of 100 cc of Omnipaque 300 intravenous contrast. The dose-length product (DLP) was 1408.12 mGy-cm. Automated exposure control and iterative reconstruction technique were employed. COMPARISON: 01/26/2021 FINDINGS: Minimal dependent atelectasis is present in the lung bases. The heart size is normal. There is a moderate-sized sliding hiatal hernia. The liver, spleen, pancreas, gallbladder, and adrenal gla nds are normal. The kidneys are unremarkable. No pathologically enlarged abdominal or pelvic lymph no chanel are identified. There is no free intraperitoneal gas or evidence of bowel obstruction. There is u nchanged mild enlargement of the tip of the appendix which measures 12 mm.. There is severe lower lum bar spondylosis. IMPRESSION: 1. No CT correlate for the patient's symptoms. 2. Unchanged mild enlargement of the tip of the appendix. Follow-up CT in six months is recommended. Reviewed, dictated and finalized at location L. IMPRESSION: 1. No CT correlate for the patient's symptoms. 2. Unchanged mild enlargement of the tip of the appendix. Follow-up CT in six m [facility] is recommended.
[2021-10-16 11:51] VITALS: BP 112/83; PULSE 66; RESP 20; TEMP 36.4; O2SAT 100
[2021-10-16 12:07] LABS: Basophils Percent Auto 0.7 % (0.2-1.2); Eosinophils Absolute Auto 0.1 K/mm3 (0-0.3); Eosinophils Percent Auto 1.1 % (0-4.4); Hematocrit 39.8 % (37.0-47.0); Hemoglobin 12.6 g/dL (12.0-15.0); Immature Granulocyte Absolute 0.01 K/mm3 (0.00-0.031); Immature Granulocyte Percent A 0.2 % (0-0.5); Lymphocytes Absolute Auto 1.69 K/mm3 (0.9-3.2); Lymphocytes Percent Auto 37.8 % (18.3-44.2); Mean Corpuscular HGB Conc 31.7 g/dl (32-36); Mean Corpuscular Volume 82.1 fl (80-100); Monocytes Absolute Auto 0.3 K/mm3 (0.1-0.6); Neutrophils Absolute Auto 2.4 K/mm3 (1.3-6.7); Neutrophils Percent Auto 54.2 % (45.5-73.1); Platelet Count Result 229 k/mm3 (150-375); Red Blood Count 4.85 M/mm3 (4.2-5.4); Red Cell Distribution Width 17.2 % (11.5-14.5); White Blood Count 4.5 K/mm3 (4.5-10.0)
[2021-10-16 12:18] LABS: Alanine Aminotransferase 16 U/L (6-35); Albumin Level 4.8 g/dL (3.5-5.1); Alkaline Phosphatase 133 U/L (38-126); Anion Gap 11 mmol/L (8-16); Aspartate Amino Transferase 23 U/L (14-36); Bilirubin,Total 0.4 mg/dL (0.2-1.3); Blood Urea Nitrogen 9 mg/dL (7-17); Calcium 9.6 mg/dL (8.4-10.2); Carbon Dioxide 26 mmol/L (22-30); Chloride 107 mmol/L (98-107); Estimated CRCL calculation 66 ml/min; Estimated Glomerular Filt Rate > 60; Glucose 105 mg/dL (65-110); Lipase 204 U/L (23-300); Potassium 3.9 mmol/L (3.4-5.0); Sodium 144 mmol/L (137-145)
--- NOTE | 2021-10-16 12:59 | ED.ABDPAIN ---
HPI - Abdominal Pain General Chief Complaint: Abdominal Pain Stated Complaint: abdominal pain and right flank pain Time Seen by Provider: 10/16/21 11:55 Source: RN notes reviewed History of Present Illness HPI narrative: Patient presents emergency room from urgent care for right side abdominal pain. Patient states symptoms began 3 days ago. The pain is located in the right lower abdomen and radiates around to the right back described as sharp and stabbing. Denies any fever chills denies nausea vomiting diarrhea or any other symptoms states she has not taking pain medication today went to the urgent care was referred to the ER for further evaluation Related Data Allergies Allergy/AdvReac Type Severity Reaction Status Date / Time codeine AdvReac Intermediate Dizziness/V Verified 10/16/21 11:49 [From Tylenol-Codeine] omiting Review of Systems Review of Systems: Gen.: Denies fevers or chills ENT: Denies congestion Respiratory: Denies shortness of breath or cough CV: Denies chest pain or palpitations GI: See HPI denies burning, urgency, frequency or hematuria Musculoskeletal: Denies back pain or muscle pain Neuro: Denies numbness, tingling, weakness or focal weakness Skin: Denies rash Except as documented, all other systems reviewed and negative PMFSH Past Medical History Medical History Acute hypoxemic respiratory failure Fibroids Patient denies significant medical history Pneumonia due to 2019-nCoV Suspected 2019-nCoV infection Surgical History Surgical History H/O prior ablation treatment Uterine History of section, classical Hx of breast biopsy Family History Family History Unknown No family history of disorders Social History Social History Social History: 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 She is a full code. Lifelong nonsmoker. Does not use marijuana, illicit drugs. or alcohol. Smoking status: Never smoker Second hand tobacco smoke exposure: No Alcohol intake: never Substance use: never Gender identity (if verbalized by the patient): Female Sexual Orientation (if Verbalized by the Patient): Straight or Heterosexual Spiritual care concerns: No Exam Narrative: APPEARANCE: No acute distress, nontoxic, resting in bed HEENT: Normocephalic, atraumatic, OMM RESPIRATORY: No respiratory distress, clear to auscultation bilaterally with no rhonchi wheezing or rales CARDIOVASCULAR: RRR s murmur ABDOMINAL: Soft nondistended tender palpation right lower quadrant no tenderness right upper quadrant, left upper quadrant left lower quadrant no rebound or guarding MUSCULOSKELETAl: Moves all extremities. No clubbing, cyanosis or edema. NEURO: Awake and alert. Following commands, speech normal, no focal deficits SKIN:: Warm, dry. Normal Color PSYCHIATRIC: Normal affect/mood sinc Course Course Emergency Course: Patient states that they are feeling much better at this time. States abdominal pain has resolved. Repeat abdominal exam shows the patient's abdomen to be soft and nontender. Discussed with patient results of workup and diagnosis. Discussed need for follow-up with primary care physician, reasons to return to the emergency department in proper use of medication. Patient understands and agrees to current treatment plan discussed with patient her CT scan showing thickening of the tip of the appendix consistent with prior need for repeat imaging in 6 months Vital Signs Vital signs: Vital Signs Temperature 97.6 F 10/16/21 11:51 Pulse Rate 66 10/16/21 11:51 Respiratory Rate 20 10/16/21 11:51 Blood Pressure 112/83 10/16/21 11:51 Pulse Oximetry 100 10/16/21 11:51
[2021-10-16] MEDS: KETOROLAC 30 MG/ML VIAL (*BKC) IV PUSH (13:12)
[2021-10-16] MEDS: SODIUM CHLORIDE 0.9% IV 1,000 ML 999 ML IV CONT (13:12)
[2021-10-16 13:13] LABS: Appearance Urine Clear (Clear); Bilirubin Urine Negative (Negative); Blood Urine Negative (Negative); Color Urine Yellow (Yellow); Glucose Urine UA Negative (Negative); Ketones Urine Negative (Negative); Leukocyte Esterase Ur Negative LEU/UL (Negative); Nitrate Urine Negative (Negative); Protein Urine Negative (Negative); Specific Grav Ur 1.025 (1.001-1.035); Urobilinogen Urine 0.2 mg/dL (<2.0); pH Urine 5.5 (5.0-9.0)
[2021-10-16 13:32] LABS: Add Urine Microscopic? NO
--- NOTE | 2021-10-16 13:32 | PC.NURSE ---
Patient to CT
[2021-10-16 13:48] VITALS: BP 123/40; PULSE 61; RESP 18; O2SAT 98
[2021-10-16 14:50] VITALS: BP 104/71; PULSE 60; RESP 16; O2SAT 98
== END 2021-10-16 15:00 | disposition home or self-care (01) ==
PROVIDERS: Emergency Provider Emergency Medicine
DX: R10.31 Right lower quadrant pain (principal); Z86.16 Personal history of COVID-19
CPT/HCPCS: 36415; 74177; 80053; 81003; 81025; 83690; 85025; 96361; 96374; 99284; J1885; J7030; Q9967

== ENCOUNTER 2024-04-24 06:31 | Emergency (ER) | payer BC, SELFPAY ==
--- OUTSIDE RECORDS SUMMARY | 2024-04-24 06:33 | XMS_ITS | Clinical Summary ---
Author Organization [facility] [employer] Address [address] [place] [address] Care Team Providers Care Db2 Systems Programmer Name Role Phone Unavailable Primary Care Provider Unavailabl e Source Comments [facility] [employer],non-[facility] Affiliates and Associated Physician Practices is amultiple site organization consisting of ambulatory clinics and hospital sitesin [place], [place], [place] and [place]. This disclosure is being madepursuant to the Care Everywhere program and may not contain all information available regarding this patient. Last updated 17.[employer] Allergies Active Allergy Reactions Criticality Noted Date Comments Codeine 12/03/2010 Other reaction(s): GI problems Social History Tobacco Use Types Packs/Day Years Used Date Smoking Tobacco: Never Assessed Sex and Gender Information Value Date Recorded Sex Assigned at Not on file Gender Identity Not on file Sexual Orientation Not on file Plan of Treatment Health Maintenance Due Date Last Done Comments COLOGUARD (AGES 45-75) - COL ON CA SCREENING 1964 COLON MONITORING 1964 COLONOSCOPY - COLON CA SCREENING 1964 CT COLONOGRAPHY - COLON CA SCREENING 1964 Colorectal Cancer Screening 1964 FIT - COLON CA SCREENING 1964 FLEX SIG - COLON CA SCREENING 1964 LIPID TESTING 1964 MAMMOGRAM 1964 PAP SMEAR 1964 HIV SCREENING 12/26/1979 HEPATITIS C SCREENING 12/21/1982 DTAP/TDAP/TD VACCINES (1 - Tdap) 12/26/1983 HEPATITIS B VACCINE (1 of 3 - 19+ 3-dose series) 12/26/1983 PNEUMOCOCCAL VACCINE 50+ (1 of 1 - PCV) 2014 ZOSTER VACCINE (1 of 2) 2014 COVID-19 VACCINE (2023-2 5 season) 2023 INFLUENZA VACCINE (#1) 2023 DEPRESSION SCREENING 03/21/2024 HIB VACCINE Aged Out No longer eligi ble based on patient's age to complete this topic HPV VACCINE Aged Out No longer eligi ble based on patient's age to complete this topic MENINGOCOCCAL (Group B) VACCINE Aged Out No longer eligible based on patient's age to complete this topic MENINGOCOCCAL VACCINE Aged Out No barrie allie eligible based on patient's age to complete this topic PNEUMOCOCCAL VACCINE Aged Out No long er eligible based on patient's age to complete this topic
--- OUTSIDE RECORDS SUMMARY | 2024-04-24 06:33 | XMS_ITS | Referral Summary ---
Author Organization [facility] [email or web address] Address [address] [place] [address] Care Team Providers Care Bus System Operator Name Role Phone Unavailable Primary Care Provider Unavailabl e Source Comments [facility] [employer],non-[facility] Affiliates and Associated Physician Practices is amultiple site organization consisting of ambulatory clinics and hospital sitesin [place], [place], [place] and [place]. This disclosure is being madepursuant to the Care Everywhere program and may not contain all information available regarding this patient. Last updated 17.[facility] [employer] Allergies Active Allergy Reactions Criticality Noted Date Comments Codeine 12/03/2010 Other reaction(s): GI problems Social History Tobacco Use Types Packs/Day Years Used Date Smoking Tobacco: Never Assessed Sex and Gender Information Value Date Recorded Sex Assigned at Not on file Gender Identity Not on file Sexual Orientation Not on file Plan of Treatment Not on file Administered Medications
--- OUTSIDE RECORDS SUMMARY | 2024-04-24 06:33 | XMS_ITS | Patient Health Summary ---
Author Organization [facility] [employer] Address [address] [place] [address] Care Team Providers Care Technician Automatic Name Role Phone Unavailable Primary Care Provider Unavailabl e Note from [facility],non-owned Affiliates and Associated Physician Practices is amultiple site organization consisting of ambulatory clinics and hospital sitesin [place], [place], [place] and [place]. This disclosure is being madepursuant to the Care Everywhere program and may not contain all information available regarding this patient. 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
[2024-04-24 06:44] VITALS: O2SAT 98
[2024-04-24 06:45] VITALS: BP 123/97; PULSE 83; RESP 16; TEMP 36.4; O2SAT 98
[2024-04-24 07:12] LABS: Strep Group A RT-PCR NOT DETECTED (Negative)
[2024-04-24 07:17] VITALS: BP 123/92; PULSE 92; RESP 16; O2SAT 97
[2024-04-24 07:24] LABS: Influenza A QL RT-PCR Negative (Negative); Influenza B QL RT-PCR Negative (Negative); RSV RNA, RT-PCR Negative (Negative); SARS-CoV-2 RNA PCR Negative (Negative)
--- NOTE | 2024-04-24 07:50 | ED_ITS ---
HPI - URI/Sore Throat General Chief Complaint: Upper Respiratory Infection Stated Complaint: i think i have the flu Time Seen by Provider: 04/24/24 06:54 Source: patient Mode of arrival: ambulatory Limitations: no limitations History of Present Illness HPI Narrative: 58-year-old here with the complaints of cough which is been ongoing for past few days. She went to Urgent Care was given antibiotic, steroids. She states the cough is not getting any better. She denies having any fever or shortness of breath. Cough mostly is nonproductive in nature MD elicited complaint: cough Onset (ago): week(s) (1) Consistency: intermittent Severity: mild Exacerbating factors: nothing Relieving factors: nothing Related Data Allergies Allergy/AdvReac Type Severity Reaction Status Date / Time codeine (From AdvReac Intermediate Dizziness/V Verified 04/24/24 06:45 Tylenol-Codeine) omiting Review of Systems Review of Systems: All systems reviewed & are unremarkable except as noted in HPI and below Constitutional: Constitutional: Reports no additional constitutional complaints Eyes: Eyes: Reports no additional eye complaints ENT: Reports system reviewed and no additional complaints, except as documented Cardiovascular: Cardiovascular: Reports no additional cardiovascular complaints Respiratory: Respiratory: Reports as per HPI Gastrointestinal: Gastrointestinal: Reports no additional gastrointestinal complaints Musculoskeletal: Musculoskeletal: Reports no additional musculoskeletal complaints Neurologic: Reports system reviewed and no additional complaints, except as documented Psychiatric: Psychiatric: Reports no additional psychiatric complaints PMFSH Past Medical History Medical History Acute hypoxemic respiratory failure Pneumonia due to 2019-nCoV Fibroids Suspected 2019-nCoV infection Patient denies significant medical history Surgical History Surgical History H/O prior ablation treatment Uterine History of section, classical Hx of breast biopsy Family History Family History Unknown No family history of disorders Social History Social History Social History: 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 She has 4 children. She is and her is durable power trust and estates attorney for healthcare. She is a full code. Lifelong nonsmoker. Does not use marijuana, illicit drugs. or alcohol. Smoking status: Never smoker Second hand tobacco smoke exposure: No Alcohol intake: never Substance use: never Living arrangements: with family Gender identity (if verbalized by the patient): Female Sexual Orientation (if Verbalized by the Patient): Straight or Heterosexual Spiritual care concerns: No Exam Narrative: GENERAL: Well-appearing, well-nourished, and in no acute distress. HEAD: Normocephalic, atraumatic. EYES: PERRLA and EOMI. NECK: Supple. CHEST: Clear to auscultation. No respiratory distress. HEART: Regular rate and rhythm. No murmur heard. Normal peripheral pulses. EXTREMITIES: Normal range of motion. No edema. SKIN: Warm, dry, no rash. NEURO: No focal deficits. Alert and oriented x3. PSYCH: Normal mood and affect. Course Course Emergency Course: Informed her about her lab work. Her lungs are clear I advised her to continue home medication. She does feel comfortable going home Vital Signs Vital signs: Vital Signs Pulse Oximetry 98 04/24/24 06:44 Oxygen Delivery Room Air 04/24/24 06:44 Temperature 36.4 C 04/24/24 06:45 Pulse Rate 92 04/24/24 07:17 Respiratory Rate 16 04/24/24 07:17 Blood Pressure 123/92 H 04/24/24 07:17 Pulse Oximetry 97 04/24/24 07:17 Oxygen Delivery Room Air 04/24/24 06:44 MDM - URI/Sore Throat Differential Diagnosis Differential diagnosis: Likely upper respiratory infection, viral infection, bronchitis, influenza and pharyngitis Medical Records Attestation: I reviewed the patient's medical records. Lab Data Attestation: I reviewed the patient's lab results. Labs: Lab Results 04/24/24 Range/Units 06:42 Influenza A (RT-PCR) Negative (Negative) Influenza B (RT-PCR) Negative (Negative) RSV (RT-PCR) Negative (Negative) SARS-CoV-2 RNA (RT-PCR) Negative (Negative) Group A Strep (PCR) Not detected (Negative) Discharge Plan Discharge Clinical Impression: Bronchitis Patient Disposition: Home, Self-Care Condition: Stable Instructions: Acute Bronchitis (ED) Additional Instructions: Continue home medications follow up from her Patient Language: Danish Prescriptions: No Action ibuprofen 600 mg tablet 600 mg PO TID PRN (Reason: pain) Qty: 14 0RF acetaminophen 500 mg capsule 500 mg PO Q6H PRN (Reason: fever or pain) Qty: 30 0RF ibuprofen 400 mg tablet 400 mg PO TID PRN (Reason: fever or pain) 10 Days Qty: 30 0RF lidocaine 4 % adhesive patch,medicated 1 patch TOPICAL Q24H PRN (Reason: pain) 10 Days 0RF Rx Instructions: may leave on for up to 12 hrs methylprednisolone [Medrol (Vance)] 4 mg tablets,dose pack See Rx Instructions .ROUTE .COMPLEX Qty: 21 0RF Rx Instructions: orally per package directions Follow-up/Referrals: PHYSICIAN,[employer] [employer] W[employer]ER [Primary Care Provider] - Cris Bowers DO [Physician] - Time of Disposition: 07:54
== END 2024-04-24 08:08 | disposition home or self-care (01) ==
PROVIDERS: Emergency Medicine; Emergency Provider Family Medicine
DX: J40 Bronchitis, not specified as acute or chronic (principal); Z20.822 Contact with and (suspected) exposure to COVID-19
CPT/HCPCS: 87637; 87651; 99283